=== PATIENT | female | born 1980 | race Caucasian/White ===

== ENCOUNTER 2022-01-08 13:36 | Emergency (ER) | payer MEDICAID, SELFPAY ==
[2022-01-08 13:45] VITALS: BP 95/82; PULSE 112; RESP 18; TEMP 36.2; O2SAT 99; BMI 22.4
--- NOTE | 2022-01-08 13:56 | ED_ITS ---
HPI - General Adult General Time Seen by Provider: 13:56 Date Seen: 01/08/22 Chief complaint: Headache/Migraine Stated complaint: Flu symptoms, headache Time Seen by Provider: 01/08/22 13:56 Source: patient and RN notes reviewed Mode of arrival: ambulatory Limitations: no limitations History of Present Illness HPI narrative: This 41-year-old female is coming to the ER with concern of a sinus infection. She came down with upper respiratory symptoms that she presumed was influenza on Wednesday. She has children that her sick in the house that have reportedly tested positive for influenza. She primarily has had cough with this, some headaches. She had a little diarrhea at the beginning. Her appetite has been diminished. She has been able to drink fluids. She felt a little better and then started developing significant sinus congestion and pressure. She states her upper teeth hurt a lot this morning. She states she is prone to sinus infections. She has been doing Neti pots, cbwu-kog-alcwljk medicines. She has been trying warm compresses, multiple modalities. She has been doing steaming. She does have underlying asthma and is on appropriate medicines for this. Related Data Home Medications Medication Instructions Recorded Confirmed albuterol sulfate 2.5 mg/3 mL mg 01/08/22 (0.083 %) solution for nebulization budesonide-formoterol HFA 160 inhalation 01/08/22 mcg-4.5 mcg/actuation aerosol inhaler (Symbicort) fluticasone propionate 50 intranasal 01/08/22 mcg/actuation nasal spray,suspension ipratropium 0.5 mg-albuterol 3 mg ml inhalation 01/08/22 (2.5 mg base)/3 mL nebulization soln loratadine 10 mg tablet mg 01/08/22 methylphenidate HCl 18 mg mg PO 01/08/22 tablet,extended release 24 hr (Concerta) montelukast 10 mg tablet mg 01/08/22 Allergies Allergy/AdvReac Type Severity Reaction Status Date / Time nalbuphine [From Nubain] Allergy Verified 01/08/22 13:43 Review of Systems Status of ROS: Reports: 6 or more systems reviewed and unremarkable except as noted in History and below PFSH PFSH Social History Smoking Status: Never smoker Do you use any of these nicotine containing products: None Second hand tobacco smoke exposure: No How often do you have a drink containing alcohol: never How often do you have six or more drinks on one occasion: Never AUDIT-C Alcohol total score: 0 Non-prescribed substance use: denies use service: No Exam Const: Vital Signs, click to edit/add: Vital Signs - 24 hr 01/08/22 13:45 Temperature 97.2 F L Pulse Rate [Right Pulse Oximeter] 112 H Respiratory Rate 18 Blood Pressure [Ri ght Upper Arm] 95/82 Pulse Oximetry 99 Oxygen Delivery Me thod Room Air Documenting provider has reviewed patient's vital signs: yes Common normals: no apparent distress, average body habitus, oriented x3, no limitations and alert General appearance: cooperative, comfortable, well developed and ill appearing Other: Does have some dry coughing during the interaction, audible nasal congestion. Able to speak in complete sentences without any difficulty. HENMT: Common normals: normocephalic, head/scalp atraumatic, hearing grossly normal bilaterally, external ears normal, TM's normal bilaterally (Does appear to be some prominence of clear fluid inferiorly bilaterally), external nose normal, nasal mucous membranes and turbinates normal, moist oral mucous membranes, oropharynx normal, dentition normal and gingiva normal Head and scalp: normocephalic and atraumatic Face and sinus: sinuses nontender and face symmetric Nose: external nose normal and nasal mucous membranes and turbinates normal External ear: external ears normal Tympanic membrane: TM's normal bilaterally (Does appear to be some prominence of clear fluid inferiorly bilaterally) Eye: Common normals: PERRL, EOMs intact bilaterally, conjunctivae normal and no scleral icterus Conjunctiva: conjunctiva(e) normal Pupil: PERRL Neck & C-Spine: Common normals: full ROM (No cervical adenopathy no thyromegaly masses or nodules), no lymphadenopathy, supple, no meningeal signs, no JVD and thyroid normal Thyroid: thyroid normal Chest: Common normals: inspection of chest normal Resp: Common normals: normal respiratory effort, no retractions, no use of accessory muscles and clear to auscultation bilaterally Auscultation: clear to auscultation bilaterally Cardio: Common normals: no JVD, regular rate, regular rhythm, S1 normal heart sound, S2 normal heart sound, no gallops, no clicks and no murmurs Rate: re gular rate Rhythm: regular rhythm Heart sounds: S1 normal and S2 normal Neuro: Common normals: oriented x3 Sensorium/orientation: alert Meningeal signs: no meningeal signs Course Course Hospital Course: Reviewed with patient that it is likely not bacterial sinusitis or early into this illness. She in my opinion did not seem very happy with my suggestion. Nursing staff had appropriately done a triple swab on arrival. She and I discussed other testing that might help us. I will proceed with sinus imaging with just plain x-rays. I do not think we need to expose her to the radiation of a sinus CT. Will also use a CBC to help us in differentiating possible disease process here. Reevaluation(s) Reevaluation #1: Reviewed with patient her findings on her sinus x-rays. I did review with her that the turbinates did look swollen to me but that is not a sinusitis. May be giving her symptoms of the congestion now. Her white count is normal. She is testing positive for influenza a which is not surprising given the ill contacts in the house. She did request a note to be off work tomorrow which I will provide. We discussed using a nasal steroid spray. She does have Flonase at home but thinks it is old. No pharmacies are open today but I can send her a prescription in to try and start tomorrow. Patient is most definitely out of the treatment window for Tamiflu. Time: 15:01 Vital Signs Vital signs: Initial Vital Signs Temperature 97.2 F L 01/08/22 13:45 Temperature Source Temporal Artery Scan 01/08/22 13:45 Pulse Rate 112 H 01/08/22 13:45 Respiratory Rate 18 01/08/22 13:45 Blood Pressure 95/82 01/08/22 13:45 Blood Pressure Mean 86 01/08/22 13:45 Blood Pressure Position Sitting 01/08/22 13:45 Pulse Oximetry 99 01/08/22 13:45 Oxygen Delivery Method 01/08/22 13:45 Vital Signs Temperature 97.2 F L 01/08/22 13:45 Pulse Rate 112 H 01/08/22 13:45 Respiratory Rate 18 01/08/22 13:45 Blood Pressure 95/82 01/08/22 13:45 Pulse Oximetry 99 01/08/22 13:45 Oxygen Delivery Method 01/08/22 13:45 Temperature 97.2 F L 01/08/22 13:45 Pulse Rate 112 H 01/08/22 13:45 Respiratory Rate 18 01/08/22 13:45 Blood Pressure 95/82 01/08/22 13:45 Pulse Oximetry 99 01/08/22 13:45 Oxygen Delivery Method 01/08/22 13:45 Medical Decision Making Lab Data Lab results reviewed: Yes I reviewed the patient's lab results Labs: Lab Results 01/08/22 01/08/22 Range/Units 13:48 14:09 WBC 6.05 (4.50-11.00) K/uL RBC 4.36 (4.00-5.20) m/uL Hgb 13.9 (12.0-16.0) gm/dL Hct 41.3 (33.0-51.0) % MCV 95 (80-100) fL MCH 32 (26-34) pg MCHC 34 (32-36) gm/dL RDW Coeff of Anil 12.4 (11.5-15.5) % Plt Count 216 (140-440) K/uL Neut % (Auto) 66.0 (42.0-72.0) % Lymph % (Auto) 21.7 (20-44) % Gove % (Auto) 10.4 (0.0-11.0) % Eos % (Auto) 1.5 (0.0-7.0) % Baso % (Auto) 0.2 (0.0-3.0) % Neut # (Auto) 4.00 (1.7-7.0) K/uL Lymph # (Auto) 1.31 (0.90-2.90) K/uL Gove # (Auto) 0.60 (0.00-0.90) K/UL Eos # (Auto) 0.09 (0.00-0.50) K/uL Baso # (Auto) 0.01 (0.00-0.30) K/uL Abs Immat Gran (auto) 0.01 (0.00-0.30) K/uL Imm/Tot Granulo (auto) 0.2 % SARS-CoV-2 (PCR) Negative SARS-CoV-2 (Negative) Influenza Type A (PCR) POSITIVE PCR FLU A A (Negative) Influenza Type B (PCR) Negative PCR FLU B (Negative) RSV (PCR) Negative PCR RSV (Negative) Imaging Data X-ray sinus films: Attestation: I have reviewed the pertinent imaging results. My impression: Her turbinates, right greater than left looks somewhat swollen on the x-ray images but do not see any evidence of acute sinusitis on my preliminary read. Radiologist's impression: Patient: TRUDY DE LEON Facility:?[facility] Patient ID:?[id number] Site Patient ID:?[id number]. Site :?[id number] Study:?XRay Sinus -01/08/2022 2:29:23 PM Ordering Physician:?Bi Whitt Final Report: INDICATION: Sinus effect. FINDINGS: Three views of the sinuses obtained. The sinuses are all well pneumatized and clear. IMPRESSION: No plain film evidence of a sinusitis. Dictated by Pop Donaldson MD @ 01/08/2022 2:43:15 PM (Electronic Signature) Critical Care Time Critical Care Time Critical Care Time: No Discharge Plan Discharge Clinical Impression: Influenza A Patient Disposition: Home, Self-Care Condition: Stable Instructions: Influenza (ED) Additional Instructions: Can try Flonase per prescription to help decrease nasal passage swelling. Can continue with almo-ubw-iqomzfi medicines as you have been for symptom control. Note provided for you to be off work tomorrow. If you are not improving over the next week, have increasing respiratory difficulties or have increasing sinus symptoms instead of improvement over the next week, do need to seek re- evaluation. Prescriptions: No Action ipratropium-albuterol 0.5 mg-3 mg(2.5 mg base)/3 mL solution for nebulization INHALATION Label Comments: INHALE 3 ML VIA A NEBULIZER 4 TIMES DAILY FOR 3 DOSES. albuterol sulfate 2.5 mg /3 mL (0.083 %) solution for nebulization Label Comments: USE 1 VIAL VIA NEBULIZER EVERY 4 HOURS WHILE AWAKE montelukast 10 mg tablet Label Comments: TAKE 1 TABLET BY MOUTH AT BEDTIME methylphenidate HCl [Concerta] 18 mg tablet extended release 24hr PO Label Comments: TAKE 1 TABLET BY MOUTH DAILY fluticasone propionate 50 mcg/actuation spray,suspension INTRANASAL loratadine 10 mg tablet budesonide-formoterol [Symbicort] 160-4.5 mcg/actuation HFA aerosol inhaler INHALATION Label Comments: INHALE 2 PUFFS BY MOUTH TWICE DAILY Stand Alone Forms: [employer] Info Instructions
--- NOTE | 2022-01-08 14:01 | CRLHL7_ITS ---
For Patients: As a result of the Cures Act, medical imaging exams and procedure reports are released immediately into your electronic medical record. You may view this report before your referring provider. If you have questions, please contact your health care provider. INDICATION: Sinus effect. FINDINGS: Three views of the sinuses obtained. The sinuses are all well pneumatized and clear. IMPRESSION: No plain film evidence of a sinusitis. Dictated by Pop Donaldson MD @ 01/08/2022 2:43:15 PM (Electronically Signed)
[2022-01-08 14:16] LABS: Basophils Absolute Auto 0.01 K/uL (0.00-0.30); Basophils Percent Auto 0.2 % (0.0-3.0); Eosinophils Absolute Auto 0.09 K/uL (0.00-0.50); Eosinophils Percent Auto 1.5 % (0.0-7.0); Hematocrit 41.3 % (33.0-51.0); Hemoglobin* 13.9 gm/dL (12.0-16.0); Immature Granulocytes Abs Auto 0.01 K/uL (0.00-0.30); Immature Granulocytes Pct Auto 0.2 %; Lymphocytes Absolute Auto 1.31 K/uL (0.90-2.90); Lymphocytes Percent Auto 21.7 % (20-44); Mean Corpuscular HGB Conc 34 gm/dL (32-36); Mean Corpuscular Hemoglobin 32 pg (26-34); Mean Corpuscular Volume 95 fL (80-100); Monocytes Percent Auto 10.4 % (0.0-11.0); Platelet Count* 216 K/uL (140-440); RDW Coefficient of Variation % 12.4 % (11.5-15.5); Red Blood Count 4.36 m/uL (4.00-5.20); White Blood Count* 6.05 K/uL (4.50-11.00)
[2022-01-08 14:19] LABS: Slide Review Reflex No
[2022-01-08 14:35] LABS: PCR FLU A POSITIVE PCR FLU A (Negative); PCR FLU B Negative PCR FLU B (Negative); PCR RSV Negative PCR RSV (Negative)
[2022-01-08 14:40] LABS: SARS PCR* Negative SARS-CoV-2 (Negative)
--- OUTSIDE RECORDS SUMMARY | 2022-01-08 14:40 | XMS_ITS | Clinical Summary ---
:1980 Author Organization [facility] [place] [address] Care Team Providers Name Role Phone Yelitza Martino DO Primary Care Provider Allergies Active Allergy Reactions Severity Noted Date Comments Animal Dander Dyspnea High 09/27/2016 Environmental - danders, pollens , dust Nalbuphine Itching, Other - 05/01/2015 Describe In Comment Field Unlisted Allergen Shortness Of Breath 09/27/2016 Env ironmental - danders, (Include Detail In pollens , dust Comments) Shrimp Other - Describe In 12/02/2015 Sharp c hest pains, Comment Field short of breat h Sharp chest pa ins, short of breath Medications Medication Sig Dispensed Refills Start Date End Date Status levonorgestrel Inject 1 Device 1 Device 0 02/13/2016 Active intrauterine device intrauterine one (MIRENA) 20 mcg/24 hr time for 1 dose. (5 years) IUD albuterol (PROVENTIL) Inhale 3 mL via a 2 box 2 01/24/2020 Active 0.083 % neb nebulizer every 4 solutionIndications: hours if needed. Moderate persistent asthma without complication hydrOXYzine HCL Take 0.5-1 tablets 25 tablet 0 01/24/2020 Active (ATARAX) 25 mg by mouth every 6 tabletIndications: hours if needed Anxiety for Anxiety or Itching. cyclobenzaprine Take 1 Tablet (5 15 Tablet 3 08/22/2020 Active (FLEXERIL) 5 mg mg) by mouth 3 tabletIndications: times daily if Acute bilateral low needed for Muscle back pain with Spasm. bilateral sciatica meclizine (ANTIVERT) Take 1 Tablet 30 Tablet 5 10/23/2020 Active 12.5 mg (12.5 mg) by mouth tabletIndications: 3 times daily if Vertigo needed. ipratropium-albuteroL Inhale 1 Puff by 1 Each 0 11/25/2020 Active (COMBIVENT RESPIMAT) mouth 4 times (20-100 mcg each daily. actuation) mist inhalerIndications: Exacerbation of asthma, unspecified asthma severity, unspecified whether persistent albuterol-ipratropium Inhale 3 mL via a 1080 mL 3 11/25/2020 Active (DUONEB) (2.5-0.5 mg) nebulizer 4 times in 3 mL NEBULIZATION daily. solutionIndications: Exacerbation of asthma, unspecified asthma severity, unspecified whether persistent methylphenidate HCl Take 1 Capsule (10 30 Capsule 0 03/14/2021 Active (RITALIN LA) 10 mg SR mg) by mouth once capsuleIndications: daily. Attention deficit hyperactivity disorder (ADHD), predominantly inattentive type albuterol (PROVENTIL) Inhale 3 mL (2.5 180 mL 11 01/17/2021 Active 0.083 % neb mg) via a solutionIndications: nebulizer every 4 Moderate persistent hours while awake. asthma without complication montelukast Take 1 Tablet (10 30 Tablet 11 05/13/2021 Active (Singulair) 10 mg mg) by mouth once tabletIndications: daily. Moderate persistent asthma without complication fluticasone (50 mcg Inhale 2 Sprays to 16 g 11 07/21/2021 Active per actuation) nasal both nostrils 2 solution times daily. (FLONASE)Indications: Chronic rhinitis acyclovir (ZOVIRAX) TAKE 2 30 Capsule 3 08/01/2021 Active 200 mg CAPSULES(400 MG) capsuleIndications: BY MOUTH THREE Genital herpes TIMES DAILY FOR 5 simplex, unspecified DAYS site Symbicort 160-4.5 Inhale 2 Puffs by 30.6 g 0 08/01/2021 Active mcg/actuation mouth 2 times (160-4.5 mcg each daily. actuation) inhalerIndications: Severe asthma without complication, unspecified whether persistent budesonide-formoteroL Inhale 2 Puffs by 30.6 g 0 10/24/2021 Active (SYMBICORT) 160-4.5 mouth two times mcg/actuation daily. (160-4.5 mcg each actuation) inhalerIndications: Severe asthma without complication, unspecified whether persistent albuterol HFA Inhale 1-2 Puffs 1 Each 0 11/02/2021 Active (PRO-AIR; VENTOLIN; by mouth every 4 PROVENTIL) 90 hours if needed mcg/actuation for Shortness Of inhalerIndications: Breath. Exacerbation of asthma, unspecified asthma severity, unspecified whether persistent albuterol HFA Inhale 2 Puffs by 18 g 1 11/06/2021 Active (PRO-AIR; VENTOLIN; mouth every 4 PROVENTIL) 90 hours if needed mcg/actuation for Shortness Of inhalerIndications: Breath or Exacerbation of Wheezing. asthma, unspecified asthma severity, unspecified whether persistent triamcinolone Apply topically to 80 g 1 11/06/2021 Active (ARISTOCORT) 0.1 % affected area(s) ointmentIndications: two times daily. Keratosis pilaris loratadine (CLARITIN) TAKE 1 TABLET(10 90 Tablet 2 11/30/2021 Active 10 mg MG) BY MOUTH EVERY tabletIndications: DAY Seasonal allergies azelastine 137 Inhale 1 [place] 30 mL 5 12/08/2021 Active mcg/actuation into affected (ASTELIN) nasal nostril(s) two sprayIndications: times daily. 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 Overview: Overview: Depression Anxiety Overview: Overview: Depression Anxiety Placenta previa in third trimester 05/29/2015 Herpes simplex type 2 infection 03/16/2013 Environmental allergies 03/16/2013 GERD (gastroesophageal reflux disease) 12/24/2011 Unspecified personality disorder 11/19/2011 Polysubstance dependence, non-opioid, in remission 05/2011 Health Maintenance 08/25/2010 Overview: n/a IUD (intrauterine device) in place 09/16/2007 Overview: lissa Castillo in Sep, 2012 Moderate persistent asthma without complication Resolved Problems Problem Noted Date Resolved Date Supervision of other normal 06/16/2007 Herpes 07/04/2020 Encounters Date Type Specialty Care Team Description 01/07/2022 Telephone Yelitza Martino DO Referr al (Psychiatry) 01/06/2022 Emergency Mingo Payne Infl uenza-like illness MD Celina (Primary Dx) 01/06/2022 Travel 12/08/2021 Office Visit Bernardino Crockett, Follow Up (asthma ) 12/08/2021 Travel 11/29/2021 Refill Yelitza Martino DO Refill Request (Loratadine) 11/13/2021 Office Visit Mahnaz Garg Consu lt (Breathing PA difficulties) 11/13/2021 Travel 11/06/2021 Office Visit Yelitza Martino DO Derm P roblem (feels like ingrown hairs - since childhood ) 11/06/2021 Travel 11/02/2021 Office Visit Darlene Mckenzie, HERIBERTO Throat P roblem 11/02/2021 Travel 11/01/2021 Refill Yelitza Martino DO Refill Request (Albuterol Hfa) 10/30/2021 Refill Yelitza Martino DO Refill Request (Loratadine) from Last 3 Months Immunizations Name Administration Dates Next Due DTaP 12/06/1986, 06/14/1986, 1982, 03/0 10/1982 Hepatitis B (Peds) 01/17/1998 Hepatitis B, Unspecified 09/28/2007, 10/03/2003, 09/28/2002 Inactivated Polio Vaccine 06/14/1986, 1982, 1980 Influenza, IIV4 01/24/2020, 12/08/2018, 11/30/2017, 11/16, 12/18/2014 MMR 09/17/1983 Polio Virus, Unspecified 06/14/1986, 1982, 1982 Tdap 04/11/2015, 08/25/2010 Family History Medical History Relation Name Comments Heart attack Father early 40s, early 50s. Hemochromatosis Father Diabetes Maternal Grandmother Heart Disease Maternal Uncle Other Mother Hemachromatosis Thyroid Disease Mother hypothyroidism Hemochromatosis Paternal Aunt Hemochromatosis Paternal Grandfather Hemochromatosis Paternal Uncle Relation Name Status Comments Brother 1 Alive Brother 2 Alive Brother 3 Alive Brother 4 Alive Father Maternal Grandmother Maternal Uncle Mother Alive Paternal Aunt Paternal Grandfather Paternal Uncle Social History Tobacco Use Types Packs/Day Years Used Date Former Smoker 1 Smokeless Tobacco: Never Used Tobacco Cessation: Counseling Given: Yes Alcohol Use Standard Drinks/Week Comments No 0 (1 standard drink = 0.6 oz pure alcoho l) Sex Assigned at Date Recorded Not on file COVID-19 Exposure Response Date Recorded In the last 10 days, have you been in contact No / Unsure 01/06/2022 10:42 AM TOP EDGE BEVELER with someone who was confirmed or suspected to have Coronavirus/COVID-19? Obstetrics History Para Term AB IAB SAB Ectopic Multiple Living Live Births 4 3 3 0 0 0 0 0 0 3 3 Date Outcome GA Total Labor/2nd/3rd Weight Sex Delivery Anes PTL Mallory A 1 A5 Name Clin Labor 06/22 Term F Samantha /2002 ng 02/20 Term F Samantha /2005 ng 06/16 Term F Samantha /2007 ng Last Filed Vital Signs Vital Sign Reading Time Taken Comments Blood Pressure 90/69 01/06/2022 10:58 AM TOP EDGE BEVELER Pulse 105 01/06/2022 10:58 AM TOP EDGE BEVELER Temperature 37.1 ??C (98.7 ??F) 01/06/2022 10:58 AM TOP EDGE BEVELER Respiratory Rate 22 01/06/2022 10:58 AM TOP EDGE BEVELER Oxygen Saturation 98% 01/06/2022 10:58 AM TOP EDGE BEVELER Inhaled Oxygen Concentration - - Weight 70.8 kg (156 lb) 01/06/2022 1:26 PM TOP EDGE BEVELER Height 175.3 cm (5' 9) 01/06/2022 1:23 PM TOP EDGE BEVELER Body Mass Index 23.04 01/06/2022 1:23 PM TOP EDGE BEVELER Plan of Treatment Upcoming Encounters Date Type Specialty Care Team Description 03/04/2022 Office Visit Bernardino Crockett Tamika jackson, DO [address] [place], [place] [address] (Wo rk) Health Maintenance Due Date Last Done Comments COVID-19 vaccine series (#1) 1980 Pneumococcal series for age 19-64 02/28/1988 (1 - PCV) Influenza for age 9-49 10/16/2021 01/24/2020, 12/08/2018, 11/30/2017, Additional history exists Depression screening for age 12+ 09/18/2022 09/18/2021, , 07/16/2020, Additional history exists BMI (ht and wt on same day) for 12/08/2022 12/08/2021, 03/2 10/2021, age 18+ 02/14/2021, Additional history exists Tetanus booster 04/11/2025 04/11/2015, 08/25/2010 Pap test for age 21-65 09/18/2026 09/18/2021, 09/18/2021, 11/30/2017 (Completed outside of [facility]) Tdap Completed 04/11/2015, 08/25/2010 HIV for age 15-65 Completed 09/18/2021, 01/12/2020, 02/11/2017 Hepatitis C screening for age Completed 09/18/2021 18-79 Procedures Procedure Name Priority Date/Time Associated Comments Diagnosis COVID 19 STAT 01/06/2022 1:27 PM Results f or this TOP EDGE BEVELER procedure are i n the results section. COVID 19 COLLECTION STAT 01/06/2022 1:27 PM Re sults for this TOP EDGE BEVELER procedure are i n the results section. THROAT RAPID STREP STAT 11/02/2021 3:35 PM Sore throat Res ults for this ONLY CLINIC CDT procedure are i n the results section. from Last 3 Months Results COVID 19 (01/06/2022 1:27 PM TOP EDGE BEVELER) Analysis Performed At Patho logist Time Signature COVID 19 Negative Negative 01/06/2022 [facility] 3:43 PM [facility] Comment: All PCR tests are subject to fa lse negative result due to variability in viral load and collection technique. A n egative result does not rule out a SARS-CoV-2 infection. Clinical correlation required . Specimen Anatomical Location / Collection Method Collection Sanjay e Received Time (Source) Laterality / Volume Other SPECIMEN FROM Non-Blood / 01/06/2022 1:27 01/06/2022 1:33 NASOPHARYNGEAL Unknown PM TOP EDGE BEVELER PM TOP EDGE BEVELER STRUCTURE / Unknown Narrative [facility] - 3:43 PM TOP EDGE BEVELER This test has been authorized by FDA und er an Emergency Use Authorization (EUA). This test is only authorized for the duration of time the declaration that circumstances exist justifying the authorization of th e emergency use of in vitro diagnostic tests for detection of SARS-CoV-2 virus and/or diagnosis of COVID-19 infection under section 564(b)(1) of the Act, 21 U.S.C. 360bbb-3(b) (1), unless the authorization is terminated or revoked sooner. Mingo Payne MD MICROBIOLOGY Performing Organization Address City/[facility] e [facility] [address] [place] [address] COVID 19 COLLECTION (01/06/2022 1:27 PM TOP EDGE BEVELER) [facility] gist Method Time Signature TESTING [facility] 01/06/2022 [facility] 1:33 PM [facility] Comment: Specimen submitted to [facility] for testing. Specimen Anatomical Location / Collection Method Collection Sanjay e Received Time (Source) Laterality / Volume Other SPECIMEN FROM Non-Blood / 01/06/2022 1:27 01/06/2022 1:31 NASOPHARYNGEAL Unknown PM TOP EDGE BEVELER PM TOP EDGE BEVELER STRUCTURE / Unknown Mingo Payne MD SEND OUTS Performing Organization Address [facility] Phon e Number [facility] [address] [place] [address] THROAT RAPID STREP ONLY CLINIC (11/02/2021 3:35 PM CDT) Analysis Performed At Patho logist Time Signature THROAT RAPID Negative 11/02/2021 [facility] 3:49 PM [facility] Specimen Anatomical Collection Method Collection Time Receive d Time (Source) Location / / Volume Laterality Throat SPECIMEN FROM Non-Blood / 11/02/2021 3:35 PM 11/03/19 22 3:45 THROAT / Unknown Unknown CDT PM CDT Darlene Mckenzie NP MICROBIOLOGY Performing Organization Address City/State/ZIP Code Phon e Number [facility] [address] [place] [address] from Last 3 Months Insurance Payer Benefit Plan / Subscriber ID Effective Dates Phone Addre ss Type Group [employer] [id number] 2017-Presen [address] [address] [employer] [place] [id number] [facility] [id number] 2021-Present [address] [place] [address] [employer] Vega Motor Vehicle Self 1980 [id number] (Home) [place] [address] Advance Directives Latest Code Status on File Code Status Date Activated Date Inactivated Comments Full Code 05/01/2015 3:27 PM 05/01/2015 10:16 PM Full Code 06/17/2007 7:53 AM 06/18/2007 7:34 AM Full Code 06/16/2007 7:25 PM 06/17/2007 7:53 AM Care Teams Head Waitress Relationship Specialty Start Date End Date Yelitza Martino, PCP - General Internal Medicine 02/24/16 [address] [facility] [place] [address]
[2022-01-08 14:59] VITALS: BP 90/72; PULSE 87; RESP 20; TEMP 36.6; O2SAT 97
== END 2022-01-08 15:12 | disposition home or self-care (01) ==
PROVIDERS: Emergency Provider Family Medicine
DX: J09.X2 Influenza due to identified novel influenza A virus with other respiratory manifestations (principal)
CPT/HCPCS: 36415; 70220; 85025; 87502; 87634; 87635; 99284

== ENCOUNTER 2022-02-04 16:20 | Emergency (ER) | payer MEDICAID, SELFPAY ==
[2022-02-04 16:44] VITALS: BP 103/67; PULSE 87; RESP 18; TEMP 36.8; O2SAT 98; BMI 23.0
--- NOTE | 2022-02-04 17:58 | CRLHL7_ITS ---
For Patients: As a result of the Century Cures Act, medical imaging exams and procedure reports are released immediately into your electronic medical record. You may view this report before your referring provider. If you have questions, please contact your health care provider. INDICATION: Cough. Shortness of breath. TECHNIQUE: PA and lateral views of the chest. COMPARISON: 03/03/2021. FINDINGS: Heart size is normal. Pulmonary vasculature is unremarkable. No airspace opacities to suggest pneumonia. No pleural fluid or pneumothorax. IMPRESSION: No radiographic evidence of pneumonia. Dictated by Andres Quiroz MD @ 02/04/2022 6:34:49 PM (Electronically Signed)
--- NOTE | 2022-02-04 17:59 | ED.GENADULT ---
HPI - General Adult General Chief complaint: Cough Stated complaint: Short of Breath Time Seen by Provider: 02/04/22 16:37 History of Present Illness HPI narrative: This 41-year-old female comes in reporting 1 week of upper respiratory symptoms including cough and some feeling of shortness of breath. She has some nasal congestion and a hoarse voice. She does not report any fevers. She states that she does use an inhaler and a preventative medicine as needed. She has been using these over the past week without much improvement. Related Data Home Medications Medication Instructions Recorded Confirmed albuterol sulfate 2.5 mg/3 mL mg 01/08/22 (0.083 %) solution for nebulization budesonide-formoterol HFA 160 inhalation 01/08/22 mcg-4.5 mcg/actuation aerosol inhaler (Symbicort) fluticasone propionate 50 intranasal 01/08/22 mcg/actuation nasal spray,suspension ipratropium 0.5 mg-albuterol 3 mg ml inhalation 01/08/22 (2.5 mg base)/3 mL nebulization soln loratadine 10 mg tablet mg 01/08/22 methylphenidate HCl 18 mg mg PO 01/08/22 tablet,extended release 24 hr (Concerta) montelukast 10 mg tablet mg 01/08/22 Previous Rx's Medication Instructions Recorded fluticasone furoate 27.5 2 spray intranasal DAILY #9.1 mL 01/08/22 mcg/actuation nasal spray,suspension methylprednisolone 4 mg tablets in See Rx Instructions PO .COMPLEX 02/04/22 a dose pack (Medrol (Norm)) #21 ea Allergies Allergy/AdvReac Type Severity Reaction Status Date / Time nalbuphine [From Nubain] Allergy Verified 01/08/22 13:43 Review of Systems Status of ROS: Reports: 10 or more systems reviewed and unremarkable except as noted in History and below Narrative: Constitutional: No fevers, no weight gain or loss. Eyes: No discharge. No vision changes. HENT: Nasal congestion, no sore throat, no ear pain. Cardiovascular: No chest pain, no palpitations. Respiratory: Cough. Shortness of breath. Gastrointestinal: No abdominal pain, no vomiting, no diarrhea. Genitourinary: No dysuria, no hematuria. Musculoskeletal: Normal range of motion. Skin: No rashes, no pruritis. Neurological: No dizziness, weakness, sensory change, speech change. Endo/Heme/Allergies: No bruising or bleeding. No polydipsia. Pysch: no suicidality, no anxiety, no insomnia. All other systems reviewed and are negative. [facility] Social History Smoking Status: Never smoker Do you use any of these nicotine containing products: None Second hand tobacco smoke exposure: No How often do you have a drink containing alcohol: never How often do you have six or more drinks on one occasion: Never AUDIT-C Alcohol total score: 0 Non-prescribed substance use: denies use service: No Exam Narrative: Exam Narrative: Constitutional: Well-developed, well-nourished, no acute distress. HEENT: Normocephalic, atraumatic. Neck: Normal range of motion. Nontender. Supple. Heart: Regular. No murmurs. Normal rate. Intact distal pulses. Lungs: Clear to auscultation. No chest discomfort. No wheezes, rhonchi, or rales. Abdomen: Normal bowel sounds. Nontender. No rebound tenderness. Genitalia: Deferred. Back: No midline tenderness. Normal range of motion. Extremities: Normal range of motion. No injury. Skin: Intact. No rash. Warm. No erythema or pallor. Neurologic: No altered sensation. No weakness. Alert and oriented. Psychiatric: No suicidality. No anxiety or depression. No insomnia. Nursing notes and vitals signs are reviewed. Const: Vital Signs, click to edit/add: Vital Signs - 24 hr 02/04/22 16:44 02/04/22 18:38 02/04/22 19:32 Temperature 98.2 F Pulse Rate [Right Pulse Oximeter] 87 69 Respiratory Rate 18 Blood Pressure [Ri ght Upper Arm] 103/67 99/69 100/66 Pulse Oximetry 98 100 Oxygen Delivery Me thod Room Air Room Air Course Vital Signs Vital signs: Initial Vital Signs Temperature 98.2 F 02/04/22 16:44 Temperature Source Temporal Artery Scan 02/04/22 16:44 Pulse Rate 87 02/04/22 16:44 Pulse Rhythm 02/04/22 16:44 Respiratory Rate 18 02/04/22 16:44 Blood Pressure 103/67 02/04/22 16:44 Blood Pressure Mean 79 02/04/22 16:44 Blood Pressure Position Sitting 02/04/22 16:44 Pulse Oximetry 98 02/04/22 16:44 Oxygen Delivery Method 02/04/22 16:44 Vital Signs Temperature 98.2 F 02/04/22 16:44 Pulse Rate 87 02/04/22 16:44 Respiratory Rate 18 02/04/22 16:44 Blood Pressure 103/67 02/04/22 16:44 Pulse Oximetry 98 02/04/22 16:44 Oxygen Delivery Method 02/04/22 16:44 Temperature 98.2 F 02/04/22 16:44 Pulse Rate 69 02/04/22 19:32 Respiratory Rate 18 02/04/22 16:44 Blood Pressure 100/66 02/04/22 19:32 Pulse Oximetry 100 02/04/22 19:32 Oxygen Delivery Method 02/04/22 19:32 Medical Decision Making MDM Narrative Medical decision making narrative: This patient comes in reporting upper respiratory symptoms as described above. A chest x-ray is ordered and returns with no evidence of acute pulmonary disease. Additionally her nasal pharyngeal swab returns negative for COVID, influenza, and RSV. The patient does have normal vital signs. She is using inhalers at home. I did give her an oral dose of dexamethasone 10 mg. Her symptoms are likely due to a virus. She did receive a Medrol Dosepak and prescription for some tablets of Tylenol 3. Lab Data Labs: Lab Results 02/04/22 Range/Units 18:20 SARS-CoV-2 (PCR) Negative SARS-CoV-2 (Negative) Influenza Type A (PCR) Negative PCR FLU A (Negative) Influenza Type B (PCR) Negative PCR FLU B (Negative) RSV (PCR) Negative PCR RSV (Negative) Imaging Data Chest x-ray: Radiologist's impression: No radiographic evidence of pneumonia. Discharge Plan Discharge Clinical Impression: Acute upper respiratory infection Patient Disposition: Home, Self-Care Condition: Stable Additional Instructions: Take medication as needed and indicated. Follow up with MD or return if worsening. Prescriptions: New methylprednisolone [Medrol (Norm)] 4 mg tablets,dose pack See Rx Instructions .ROUTE .COMPLEX Qty: 21 0RF Rx Instructions: orally per package directions No Action ipratropium-albuterol 0.5 mg-3 mg(2.5 mg base)/3 mL solution for nebulization INHALATION Label Comments: INHALE 3 ML VIA A NEBULIZER 4 TIMES DAILY FOR 3 DOSES. albuterol sulfate 2.5 mg /3 mL (0.083 %) solution for nebulization Label Comments: USE 1 VIAL VIA NEBULIZER EVERY 4 HOURS WHILE AWAKE montelukast 10 mg tablet Label Comments: TAKE 1 TABLET BY MOUTH AT BEDTIME methylphenidate HCl [Concerta] 18 mg tablet extended release 24hr PO Label Comments: TAKE 1 TABLET BY MOUTH DAILY fluticasone propionate 50 mcg/actuation spray,suspension INTRANASAL loratadine 10 mg tablet budesonide-formoterol [Symbicort] 160-4.5 mcg/actuation HFA aerosol inhaler INHALATION Label Comments: INHALE 2 PUFFS BY MOUTH TWICE DAILY fluticasone furoate 27.5 mcg/actuation spray,suspension 2 spray intranasal DAILY Qty: 9.1 0RF Rx Instructions: into each nostril Follow Up/Referrals: Provider,Not a Local [Primary Care Provider] - Stand Alone Forms: [employer] Info Instructions
[2022-02-04] MEDS: dexAMETHasone 10 MG/ML inj PO (18:24)
[2022-02-04 18:38] VITALS: BP 99/69
[2022-02-04 19:15] LABS: PCR FLU A Negative PCR FLU A (Negative); PCR FLU B Negative PCR FLU B (Negative); PCR RSV Negative PCR RSV (Negative)
[2022-02-04 19:32] VITALS: BP 100/66; PULSE 69; O2SAT 100
[2022-02-04 19:57] LABS: SARS PCR* Negative SARS-CoV-2 (Negative)
== END 2022-02-04 20:15 | disposition home or self-care (01) ==
PROVIDERS: Emergency Provider Emergency Medicine Emergency Medical Services
DX: J06.9 Acute upper respiratory infection, unspecified (principal)
CPT/HCPCS: 71046; 87502; 87634; 87635; 99284; J1100

== ENCOUNTER 2022-11-25 09:15 | Outpatient (RCR) | payer MEDICAID, SELFPAY | END 2023-03-25 23:59 | disposition home or self-care (01) | PROVIDERS: Visit Provider Family Medicine | DX: N81.89 Other female genital prolapse (principal); R32 Unspecified urinary incontinence; R29.898 Other symptoms and signs involving the musculoskeletal system; Z51.89 Encounter for other specified aftercare | CPT/HCPCS: 97110; 97140; 97162 ==

== ENCOUNTER 2023-04-06 17:12 | Outpatient (CLI) | payer MEDICAID, SELFPAY ==
--- OUTSIDE RECORDS SUMMARY | 2023-04-06 17:15 | XMS_ITS | Clinical Summary ---
Author Name Unknown Organization [email or web address] [facility] [employer] Address [place], [place] [address] Care Team Providers Care Character Artist Name Role Phone Yelitza Martino Primary Care Provider Allergies Active Allergy Reactions Criticality Noted Date Comments Animal Dander Dyspnea High 09/27/2016 Environmental - danders, pollens , dust Nalbuphine Itching,Other - Describe In Comment Field 05/01/2015 Unlisted Allergen (Include Detail In Comments) Shortness Of Breath 09/27/2016 Environmental - danders, pollens , dust Shrimp Other - Describe In Comment Field 12/02/2015 Sharp chest pains, short of breath Sharp chest pains, short of breath Medications Medication Sig Dispensed Refills Start Date End Date Status levonorgestrel intrauterine device (MIRENA) 20 mcg/24 hr (5 years) IUD Inject 1 Device intrauterine one time for 1 dose. 1 Device 0 02/13/2016 Active hydrOXYzine HCL (ATARAX) 25 mg tabletIndications: Anxiety Take 0.5-1 tablets by mouth every 6 hours if needed for Anxiety or Itching. 25 tablet 0 01/24/2020 Active cyclobenzaprine (FLEXERIL) 5 mg tabletIndications: Acute bilateral low back pain with bilateral sciatica Take 1 Tablet (5 mg) by mouth 3 times daily if needed for Muscle Spasm. 15 Tablet 3 08/22/2020 Active meclizine (ANTIVERT) 12.5 mg tabletIndications: Vertigo Take 1 Tablet (12.5 mg) by mouth 3 times daily if needed. 30 Tablet 5 10/23/2020 Active albuterol (PROVENTIL) 0.083 % neb solutionIndication s:Moderate persistent asthma without complication Inhale 3 mL (2.5 mg) via a nebulizer every 4 hours while awake. 180 mL 11 01/17/2021 Active fluticasone (50 mcg per actuation) nasal solution (FLONASE)Indicatio ns:Chronic rhinitis Inhale 2 Sprays to both nostrils 2 times daily. 16 g 11 07/21/2021 Active acyclovir (ZOVIRAX) 200 mg capsuleIndications :Genital herpes simplex, unspecified site TAKE 2 CAPSULES(400 MG) BY MOUTH THREE TIMES DAILY FOR 5 DAYS 30 Capsule 3 08/01/2021 Active triamcinolone (ARISTOCORT) 0.1 % ointmentIndication s:Keratosis pilaris Apply topically to affected area(s) two times daily. 80 g 1 11/06/2021 Active loratadine (CLARITIN) 10 mg tabletIndications: Seasonal allergies TAKE 1 TABLET(10 MG) BY MOUTH EVERY DAY 90 Tablet 2 11/30/2021 Active azelastine 137 mcg/actuation (ASTELIN) nasal sprayIndications:C hronic rhinitis Inhale 1 Wise into affected nostril(s) two times daily. 30 mL 5 12/08/2021 Active albuterol-ipratrop ium (DUONEB) (2.5-0.5 mg) in 3 mL NEBULIZATION solutionIndication s:Moderate persistent asthma without complication Inhale 3 mL via a nebulizer 4 times daily. 1080 mL 9 06/18/2022 Active albuterol HFA (PRO-AIR; VENTOLIN; PROVENTIL) 90 mcg/actuation inhalerIndications :Moderate persistent asthma without complication Inhale 2 Puffs by mouth every 4 hours if needed for Shortness Of Breath or Wheezing. 1 Each 06/18/2022 Active budesonide-formote roL (SYMBICORT) 160-4.5 mcg/actuation (160-4.5 mcg each actuation) inhalerIndications :Moderate persistent asthma without complication Inhale 2 Puffs by mouth two times daily. 3 Each 06/18/2022 Active ipratropium-albute roL (COMBIVENT RESPIMAT) (20-100 mcg each actuation) mist inhalerIndications :Moderate persistent asthma without complication Inhale 1 Puff by mouth four times daily. 1 Each 06/18/2022 Active montelukast (Singulair) 10 mg tabletIndications: Moderate persistent asthma without complication Take 1 Tablet (10 mg) by mouth once daily. 90 Tablet 9 06/18/2022 Active fluticasone (50 mcg per actuation) nasal solution (FLONASE)Indicatio ns:Chronic rhinitis Inhale 2 Sprays to both nostrils once daily. 48 g 3 06/18/2022 Active Concerta 18 mg extended-release tabletIndications: Attention deficit hyperactivity disorder (ADHD), predominantly inattentive type Take 1 Tablet (18 mg) by mouth once daily. 30 Tablet 0 03/26/2023 04/25/19 24 Active Concerta 18 mg extended-release tabletIndications: Attention deficit hyperactivity disorder (ADHD), predominantly inattentive type Take 1 Tablet (18 mg) by mouth once daily. 30 Tablet 0 04/25/2023 Active methylphenidate HCl (Ritalin) 5 mg tabletIndications: Attention deficit hyperactivity disorder (ADHD), predominantly inattentive type Take 1 Tablet (5 mg) by mouth once daily in the afternoon. 30 Tablet 0 03/29/2023 04/28/19 24 Active methylphenidate HCl (Ritalin) 5 mg tabletIndications: Attention deficit hyperactivity disorder (ADHD), predominantly inattentive type Take 1 Tablet (5 mg) by mouth once daily in the afternoon. 30 Tablet 0 04/28/2023 Active Symbicort 160-4.5 mcg/actuation (160-4.5 mcg each actuation) inhalerIndications :Severe asthma without complication, unspecified whether persistent Inhale 2 Puffs by mouth two times daily. 30.6 g 0 04/05/2023 Active Symbicort 160-4.5 mcg/actuation (160-4.5 mcg each actuation) inhalerIndications :Severe asthma without complication, unspecified whether persistent INHALE 2 PUFFS BY MOUTH TWICE DAILY 30.6 g 0 01/28/2022 04/01/19 24 Discontinue d(Reorder (E-cancel not sent)) Concerta 18 mg extended-release tabletIndications: Attention deficit hyperactivity disorder (ADHD), predominantly inattentive type Take 1 Tablet (18 mg) by mouth once daily. 30 Tablet 0 02/24/2023 03/26/19 24 methylphenidate HCl (Ritalin) 5 mg tabletIndications: Attention deficit hyperactivity disorder (ADHD), predominantly inattentive type Take 1 Tablet (5 mg) by mouth once daily in the afternoon. 30 Tablet 0 2023 03/29/19 24 Active Problems Problem Noted Date Diagnosed Date Methamphetamine use disorder , moderate, in sustained remission 10/21/2022 Controlled substance agreement signed 02/23/2022 Overview: 02/23/22, Ana Rodas NP, [facility] Pap smear for cervical cancer screening 11/20/19 22 Overview: 09/2021 NIL/HPV Negative Plan: Pap and HPV 09/2026 COVID-19 virus infection 03/07/2021 Overview: Feb 2021 Sore throat 02/24/2021 Attention deficit hyperactiv ity disorder (ADHD), predominantly inattentive type 11/14/2020 Plantar fasciitis, bilateral 07/11/2020 COVID-19 vaccination declined 07/11/2020 Attention and concentration deficit 02/01/2018 Borderline personality disorder 01/27/2018 Methamphetamine use disorder , moderate, in early remission, dependence 01/27/2018 Mixed anxiety depressive disorder 11/04/2015 Overview: Overview: Depression Anxiety Overview: Overview: Depression Anxiety Placenta previa in third trimester 05/29/2015 Herpes simplex type 2 infection 03/16/2013 Environmental allergies 03/16/2013 GERD (gastroesophageal reflux disease) 2 Unspecified personality disorder 11/19/2011 Polysubstance dependence, non-opioid, in remissi on 11/19/2011 Health Maintenance 08/25/2010 Overview: n/a IUD (intrauterine device) in place 09/16/2007 Overview: Mirena, due 2023 (8 years) Moderate persistent asthma without complication Resolved Problems Problem Noted Date Diagnosed Date Resolved Date Supervision of other normal 06/16/2007 10/07/2011 Herpes 07/04/2020 Encounters Date Type Department Care Team Description 04/01/2023 Refill [facility] [address] [place] [address] Logan Silva DO Refill Request (Symbicort 160-4.5 mcg/actuation (160-4.5 mcg each actuation) inhaler) 02/24/2023 8:45 AM [employer] Office Visit [facility] [address] [place] [address] Ana Rodas, HERIBERTO Medication Management (Things are okay, but not) 02/24/2023 Travel 01/22/2023 Refill [facility] [address] [place] [address] Ana Rodas NP Refill Request (methylphenidate HCl (Ritalin) 5 mg tablet 30 Tablet) 01/22/2023 Refill [facility] [address] [place] [address] Ana Rodas NP Refill Request (Concerta) 01/20/2023 Refill [facility] [address] [place] [address] Ana Rodas NP Refill Request (Concerta) from Last 3 Months Immunizations Name Administration Dates Next Due DTaP 12/06/1986,06/14/1986,1982 ,1982 Hepatitis A (Adult) 02/18/2022 Hepatitis B (Peds) 01/17/1998 Hepatitis B, Unspecified 09/28/2007,10/03/2003,0 09/28/2002 Inactivated Polio Vaccine 06/14/1986,1982, 1982 Influenza, IIV4 02/18/2022, 0,12/08/2018,11/30/2017,2016,12/18/2014 MMR 09/17/1983 Polio Virus, Unspecified 06/14/1986,1982,0 1982 Tdap 04/11/2015,08/25/2010 Typhoid (injectable) 02/18/2022 Family History Medical History Relation Name Comments Heart attack Father early 40s, early 50s. Hemochromatosis Father Diabetes Maternal Grandmother Heart Disease Maternal Uncle Other Mother Hemachromatosis Thyroid Disease Mother hypothyroidi sm Hemochromatosis Paternal Aunt Hemochromatosis Paternal Grandfather Hemochromatosis Paternal Uncle Relation Name Status Comments Brother 1 Alive Brother 2 Alive Brother 3 Alive Brother 4 Alive Father Maternal Grandmother Maternal Uncle Mother Alive Paternal Aunt Paternal Grandfather Paternal Uncle Social History Tobacco Use Types Packs/Day Years Used Date Smoking Tobacco: Former Cigarettes 1 Passive Smoke Exposure: Never Smokeless Tobacco: Never Tobacco Cessation:Counseling Given: Not Answered Alcohol Use Standard Drinks/Week Comments No 0 (1 standard drink = 0.6 oz pur e alcohol) PHQ-2 Answer Date Recorded PHQ-2 TOTAL SCORE 2 02/24/2023 Social Connections Answer Date Recorded Frequency of Communication with Friends and Fami ly 0 05/28/2022 Financial Resource Strain Answer Date R ecorded Difficulty of Paying Living Expenses 3 05/28/2022 Difficulty of Paying Living Expenses Not on file 05/28/2022 Food Insecurity Answer Date Recorded Worried About Running Out of Food in the Last Ye ar 1 05/28/2022 Transportation Needs Answer Date Record ed Lack of Transportation (Medical) 1 05/28/2022 Housing Stability Answer Date Recorded Unable to Pay for Housing in the Last Year 1 05/28/2022 Sex and Gender Information Value Date Recorded Sex Assigned at Not on file Gender Identity Not on file Sexual Orientation Not on file Obstetrics History Para Term AB IAB SAB Ectopic Multiple Livin g Live Births 4 3 3 0 0 0 0 0 0 3 3 Date Outcome GA Total Labor Labor/2nd/3rd Weight Sex Delivery Anes PTL Mallory A1 A5 Name Cl in 06/22 Term F Samantha ng 02/20 Term F Samantha ng 06/16 Term F Samantha ng Last Filed Vital Signs Vital Sign Reading Time Taken Comments Blood Pressure 110/59 02/24/2023 8:50 AM [employer] Pulse 100 02/24/2023 8:50 AM [employer] Temperature 36.8 ??C (98.2 ??F) 06/18/2022 10:40 AM C DT Respiratory Rate 12 10/06/2022 10:38 AM CDT Oxygen Saturation 98% 09/23/2022 10:36 AM CDT Inhaled Oxygen Concentration - - Weight 81.9 kg (180 lb 9.6 oz) 02/24/2023 8:50 A M [employer] Height 175.3 cm (5' 9) 09/23/2022 10:36 AM CDT Body Mass Index 26.67 09/23/2022 10:36 AM CDT Plan of Treatment Upcoming Encounters Date Type Department Care Team (Late st Contact Info) Description 04/28/2023 11:10 AM CDT Office Visit [facility] [address] [place] [address] Yelitza Martino, DO [address] [place] [address] 05/26/2023 8:15 AM CDT Office Visit [facility] [address] [place] [address] Ana Rodas NP [address] [place] [address] 06/09/2023 1:00 PM CDT Telemedicine [facility] [address] [place] [address] Logan Silva, DO [address] [place] [address] Health Maintenance Due Date Last Done Comments COVID-19 vaccine series (#1) 1982 Pneumococcal series for age 6-64 (1 of 2 - PCV) 02/28/1988 Influenza for age 9-49 10/16/2022 3, 01/24/2020, 12/08/2018, Additional history exists BMI (ht and wt on same day) for age 18+ 09/24/2023 09/23/2022, 06/18/2022, 05/29/2022, Additional history exists Depression screening for age 12+ 02/25/2024 02/24/2023, 10/21/2022, 10/21/2022, Additional history exists Tetanus booster 04/11/2025 04/11/2015, 08/25/2010 Pap test for age 21-65 09/18/2026 2, 09/18/2021, 11/30/2017 (Completed outside [facility]) Tdap Completed 04/11/2015, 08/25/2010 HIV for age 15-65 Completed 09/18/2021, , 02/11/2017 Hepatitis C screening for ag e 18-79 Completed 09/23/2022, 09/18/2021 Advance Directives Latest Code Status on File Code Status Date Activated Date Inactivated Comments Full Code 05/01/2015 3:27 PM 05/01/2015 10:16 PM Code Status History Code Status Date Activated Date Inactivated Comments Full Code 06/17/2007 7:53 AM 06/18/2007 7:34 AM Full Code 06/16/2007 7:25 PM 06/17/2007 7:53 AM Care Teams Character Artist Relationship Specialty Start Date End Date Yelitza Martino DO [address] [place] [address] PCP - General Internal Medicine 02/24/16
[2023-04-06 23:12] LABS: Chlamydia DNA Amplified* Not Detected (No Detected); GC DNA Amplified* Not Detected (No Detected)
== END 2023-04-06 17:13 | disposition home or self-care (01) ==
LOC: NFLDUCREF 17:13
PROVIDERS: PCP Internal Medicine; Visit Provider Registered Nurse
DX: N89.8 Other specified noninflammatory disorders of vagina (principal); Z11.3 Encounter for screening for infections with a predominantly sexual mode of transmission
CPT/HCPCS: 87491; 87591

== ENCOUNTER 2023-05-15 15:42 | Emergency (ER) | payer MEDICAID, SELFPAY ==
[2023-05-15 15:49] VITALS: BP 110/77; PULSE 93; RESP 24; TEMP 36.8; O2SAT 100; BMI 26.4
--- NOTE | 2023-05-15 16:10 | ED_ITS ---
HPI - SOB/Dyspnea General Time Seen by Provider: 16:11 Date Seen: 05/15/23 Chief Complaint: Shortness of Breath/Dyspnea Stated Complaint: shortness of breath, asthma Time Seen by Provider: 05/15/23 15:45 Source: patient and RN notes reviewed Mode of arrival: ambulatory Limitations: no limitations History of Present Illness HPI Narrative: This 43-year-old female with underlying asthma is coming in with concern of shortness of breath, difficulty catching her breath. She flew to [place] last weekend, flew in on Wednesday. On the way down she wore her mask but on the way back she states it was less crowded in she did not wear her mask. By Wednesday evening she was not feeling well. She is having nasal drainage which is clear, postnasal drainage. Some coughing. She just feels like she cannot catch her breath. She starting to feel burning with breathing. She has some mild coughing in there is increased burning with coughing. The burning is inside her chest. She has no underlying baseline chest pain it is with breathing and coughing. She has not noted any fevers but admits she has not taken her temperature. She has been using her asthma medicines. She was sick with influenza in December, RSV in February. Patient has a Mirena IUD. Patient has tried Mucinex and been on her inhalers. MD elicited complaint: shortness of breath Pertinent past history: asthma Related Data Home oxygen amount: none Home Medications Medication Instructions Recorded Confirmed albuterol sulfate 2.5 mg/3 mL mg 01/08/22 04/17/23 (0.083 %) solution for nebulization budesonide-formoterol HFA 160 inhalation 01/08/22 04/17/23 mcg-4.5 mcg/actuation aerosol inhaler (Symbicort) ipratropium 0.5 mg-albuterol 3 mg ml inhalation 01/08/22 04/17/23 (2.5 mg base)/3 mL nebulization soln loratadine 10 mg tablet mg 01/08/22 04/17/23 montelukast 10 mg tablet mg 01/08/22 04/17/23 Previous Rx's Medication Instructions Recorded fluticasone furoate 27.5 2 spray intranasal DAILY #9.1 mL 01/08/22 mcg/actuation nasal spray,suspension Allergies Allergy/AdvReac Type Severity Reaction Status Date / Time nalbuphine [From Nubain] Allergy Verified 05/15/23 15:53 Review of Systems Status of ROS: Reports: 6 or more systems reviewed and unremarkable except as noted in History and below [facility] Medical History (Updated 05/15/23 @ 17:55 by Peri Pat MD) Asthma ?J45.909 - Unspecified asthma, uncomplicated (ICD-10) Social History Smoking Status: Never smoker Do you use any of these nicotine containing products: None Second hand tobacco smoke exposure: No How often do you have a drink containing alcohol: never How often do you have six or more drinks on one occasion: Never AUDIT-C Alcohol total score: 0 Non-prescribed substance use: denies use service: No Exam Const: Vital Signs, click to edit/add: Vital Signs - 24 hr 05/15/23 15:49 05/15/23 16:20 05/15/23 16:39 Temperature 98.2 F Pulse Rate [Pulse Oximeter] 93 94 Respiratory Rate 24 Blood Pressure [Ri ght Upper Arm] 110/77 Pulse Oximetry 100 100 99 Oxygen Delivery Me thod Room Air Room Air 05/15/23 16:59 Temperature Pulse Rate [Pulse Oximeter] 88 Respiratory Rate Blood Pressure [Ri ght Upper Arm] Pulse Oximetry 100 Oxygen Delivery Me thod Room Air Patient is alert, interactive, no apparent distress but do note she is tachypneic. She is oxygenating 98-100% on room air. She does have to stop in breathe, do really see that she is tachypneic during my interaction with her. Pupils are equal round reactive, sclerae clear. TMs canals without any evidence of infection. Anterior nares look normal. Oropharynx normal mucosa no exudates erythema, will hydrated. No jugular venous distension no cervical adenopathy no thyromegaly masses or nodules. Lungs are clear, good air entry, no wheezing or crackles. CV regular rate and rhythm, no murmur, normal S1-S2, no S3-S4. Her speech is not hoarse. Documenting provider has reviewed patient's vital signs: yes Course Course ED Course: Will monitor patient on pulse oximetry. She does not seem to need any breathing treatments, she has no wheezing and has good air entry, no significant expiratory changes. Will get portable chest x-ray to start, do full complement of labs. With her component of shortness of breath, will consider other entities such as possible cardiac complications of viral disease. Will look at EKG, troponin, D-dimer, venous blood gas among other laboratory values. Nursing staff appropriately did do a triple swab. This certainly could be viral respiratory infection with some early exacerbation of her asthma. Will see there is any clinical indication for antibiotics or early bacterial pneumonia. Reevaluation(s) Time of Reevaluation #1: 17:48 Reevaluation #1: Reviewed normal chest x-ray, normal lab findings with her. Discussed options, we will treat with prednisone for viral induced asthma exacerbation. We did discuss the triple swab is negative but she certainly very likely has an und erlying upper respiratory infection with a different virus. Vital Signs Vital signs: Initial Vital Signs Temperature 98.2 F 05/15/23 15:49 Temperature Source Temporal Artery Scan 05/15/23 15:49 Pulse Rate 93 05/15/23 15:49 Respiratory Rate 24 05/15/23 15:49 Blood Pressure 110/77 05/15/23 15:49 Blood Pressure Mean 88 05/15/23 15:49 Blood Pressure Position Sitting 05/15/23 15:49 Pulse Oximetry 100 05/15/23 15:49 Oxygen Delivery Method Room Air 05/15/23 15:49 Vital Signs Temperature 98.2 F 05/15/23 15:49 Pulse Rate 93 05/15/23 15:49 Respiratory Rate 24 05/15/23 15:49 Blood Pressure 110/77 05/15/23 15:49 Pulse Oximetry 100 05/15/23 15:49 Oxygen Delivery Method Room Air 05/15/23 15:49 Temperature 98.2 F 05/15/23 15:49 Pulse Rate 88 05/15/23 16:59 Respiratory Rate 24 05/15/23 15:49 Blood Pressure 110/77 05/15/23 15:49 Pulse Oximetry 100 05/15/23 16:59 Oxygen Delivery Method Room Air 05/15/23 16:59 MDM - SOB/Dyspnea Lab Data Attestation: I reviewed the patient's lab results. Labs: Lab Results 05/15/23 05/15/23 Range/Units 15:55 16:37 WBC 5.23 (4.50-11.00) K/uL RBC 4.41 (4.00-5.20) m/uL Hgb 13.9 (12.0-16.0) gm/dL Hct 42.0 (33.0-51.0) % MCV 95 (80-100) fL MCH 32 (26-34) pg MCHC 33 (32-36) gm/dL RDW Coeff of Anil 12.8 (11.5-15.5) % Plt Count 237 (140-440) K/uL Neut % (Auto) 64.6 (42.0-72.0) % Lymph % (Auto) 20.1 (20-44) % [place] % (Auto) 10.9 (0.0-11.0) % Eos % (Auto) 3.6 (0.0-7.0) % Baso % (Auto) 0.4 (0.0-3.0) % Neut # (Auto) 3.38 (1.7-7.0) K/uL Lymph # (Auto) 1.05 (0.90-2.90) K/uL [place] # (Auto) 0.60 (0.00-0.90) K/UL Eos # (Auto) 0.19 (0.00-0.50) K/uL Baso # (Auto) 0.02 (0.00-0.30) K/uL Abs Immat Gran (auto) 0.02 (0.00-0.30) K/uL Imm/Tot Granulo (auto) 0.4 % D-Dimer Quant (PE/DVT) 0.29 (0.00-0.50) ug/ml VBG pH 7.456 H (7.32-7.43) VBG pCO2 40 (40-50) mmHG VBG pO2 < 30.1 (25-47) mmHG VBG HCO3 28 (21-28) mmol/L Sodium 136 (135-149) mmol/L Potassium 3.6 (3.6-5.1) mmol/L Chloride 103 (96-114) mmol/L Carbon Dioxide 26 (20-32) mmol/L Anion Gap 7 (7-15) mEq/L BUN 11 (5-24) mg/dL Creatinine 0.6 (0.5-1.5) mg/dL Estimated Creat Clear 133.43 Estimated GFR 116 ml/min Glucose 93 (60-115) mg/dL Calcium 9.0 (8.4-10.6) mg/dL Troponin I < 0.01 L (0.01-0.04) ng/mL C-Reactive Protein < 0.5 L (0.5-1.0) mg/dL NT-Pro-B Natriuret Pep 28 pg/mL SARS-CoV-2 (PCR) Negative SARS-CoV-2 (Negative) Influenza Type A (PCR) Negative PCR FLU A (Negative) Influenza Type B (PCR) Negative PCR FLU B (Negative) RSV (PCR) Negative PCR RSV (Negative) Imaging Data Chest x-ray: Attestation: I have reviewed the pertinent imaging results. My impression: Hyperinflation but no evidence infiltrate, do not appreciate any pneumothorax. Await Radiology over-read. Radiologist's impression: Patient: TRUDY DE LEON Facility:?[facility] Patient ID:?[id number] Site Patient ID:?[id number]. Site :?[id number] Study:?XRay Chest Portable-05/15/2023 4:36:52 PM Ordering Physician:?Peri Pat Final Report: INDICATION: To kidney a. Asthma. TECHNIQUE: Portable chest. Comparison 02/24/2023. FINDINGS: Normal cardiac mediastinal silhouette. Lungs are clear. No effusion or pneumothorax. IMPRESSION: No acute pulmonary process. Dictated by Katelin Dillon MD @ 05/15/2023 5:00:37 PM (Electronic Signature) ECG Data Attestation: I personally reviewed and interpreted this ECG as follows: (Normal sinus rhythm, 84 beats per minute. No evidence of any ischemia or infarct. QT corrected 423 milliseconds.) ECG interpretation date: 05/15/23 ECG interpretation time: 16:50 Prior ECG tracings: not available for review Discharge Plan Discharge Clinical Impression: Asthma with acute exacerbation Patient Disposition: Home, Self-Care Condition: Stable Instructions: Asthma (ED) Additional Instructions: Start prednisone and take as prescribed. Do recommend taking prednisone with food. If you are worsening, have concerns that her respiratory status is worsening, please seek re-evaluation. Continue with your baseline asthma medicines. Note provided to be off work Wednesday. Activity Level: Activity as Tolerated Prescriptions: No Action ipratropium-albuterol 0.5 mg-3 mg(2.5 mg base)/3 mL solution for nebulization INHALATION Patient Comments: INHALE 3 ML VIA A NEBULIZER 4 TIMES DAILY FOR 3 DOSES. albuterol sulfate 2.5 mg /3 mL (0.083 %) solution for nebulization Patient Comments: USE 1 VIAL VIA NEBULIZER EVERY 4 HOURS WHILE AWAKE montelukast 10 mg tablet Patient Comments: TAKE 1 TABLET BY MOUTH AT BEDTIME loratadine 10 mg tablet budesonide-formoterol [Symbicort] 160-4.5 mcg/actuation HFA aerosol inhaler INHALATION Patient Comments: INHALE 2 PUFFS BY MOUTH TWICE DAILY fluticasone furoate 27.5 mcg/actuation spray,suspension 2 spray intranasal DAILY Qty: 9.1 0RF Rx Instructions: into each nostril Follow Up/Referrals: Yelitza Martino [Primary Care Provider] - [facility]
[2023-05-15 16:20] VITALS: O2SAT 100
--- NOTE | 2023-05-15 16:20 | XR_ITS ---
Patient: TRUDY DE LEON Facility:?[facility] Patient ID:?[id number] Site Patient ID:?[id number]. Site :?[id number] Study:?XRay-Chest Portable-05/15/2023 4:36:52 PM Ordering Physician:Pollo Pat Final Report: INDICATION: To kidney a. Asthma. TECHNIQUE: Portable chest. Comparison 02/24/2023. FINDINGS: Normal cardiac mediastinal silhouette. Lungs are clear. No effusion or pneumothorax. IMPRESSION: No acute pulmonary process. Dictated by Katelin Dillon MD @ 05/15/2023 5:00:37 PM Signed by:?Katelin Dillon MD @05/15/2023 5:00:37 PM (Electronic Signature)
[2023-05-15 16:39] VITALS: PULSE 94; O2SAT 99
[2023-05-15 16:40] LABS: HCO3 VBG 28 mmol/L (21-28); PCO2 VBG 40 mmHG (40-50); PO2 VBG < 30.1 mmHG (25-47); pH VBG 7.456 (7.32-7.43)
[2023-05-15 16:44] LABS: Basophils Absolute Auto 0.02 K/uL (0.00-0.30); Basophils Percent Auto 0.4 % (0.0-3.0); Eosinophils Absolute Auto 0.19 K/uL (0.00-0.50); Eosinophils Percent Auto 3.6 % (0.0-7.0); Hemoglobin* 13.9 gm/dL (12.0-16.0); Immature Granulocytes Abs Auto 0.02 K/uL (0.00-0.30); Immature Granulocytes Pct Auto 0.4 %; Lymphocytes Absolute Auto 1.05 K/uL (0.90-2.90); Lymphocytes Percent Auto 20.1 % (20-44); Mean Corpuscular HGB Conc 33 gm/dL (32-36); Mean Corpuscular Hemoglobin 32 pg (26-34); Mean Corpuscular Volume 95 fL (80-100); Monocytes Percent Auto 10.9 % (0.0-11.0); Neutrophils Absolute Auto 3.38 K/uL (1.7-7.0); Neutrophils Percent Auto 64.6 % (42.0-72.0); Platelet Count* 237 K/uL (140-440); RDW Coefficient of Variation % 12.8 % (11.5-15.5); Red Blood Count 4.41 m/uL (4.00-5.20); White Blood Count* 5.23 K/uL (4.50-11.00)
[2023-05-15 16:45] LABS: Slide Review Reflex No
[2023-05-15 16:52] LABS: PCR FLU A Negative PCR FLU A (Negative); PCR FLU B Negative PCR FLU B (Negative); PCR RSV Negative PCR RSV (Negative); SARS PCR* Negative SARS-CoV-2 (Negative)
[2023-05-15 16:56] LABS: Chloride* 103 mmol/L (96-114)
[2023-05-15 16:57] LABS: Potassium* 3.6 mmol/L (3.6-5.1); Sodium* 136 mmol/L (135-149)
[2023-05-15 16:59] VITALS: PULSE 88; O2SAT 100
[2023-05-15 17:00] LABS: Anion Gap 7 mEq/L (7-15); Blood Urea Nitrogen* 11 mg/dL (5-24); Carbon Dioxide* 26 mmol/L (20-32); Creatinine* 0.6 mg/dL (0.5-1.5); Est. Creatinine Clearance* 133.43; Estimated Glomerular Filt Rate 116 ml/min
[2023-05-15 17:01] LABS: Glucose* 93 mg/dL (60-115)
[2023-05-15 17:02] LABS: D Dimer Quantitative* 0.29 ug/ml (0.00-0.50)
[2023-05-15 17:12] LABS: C Reactive Protein* < 0.5 mg/dL (0.5-1.0); NT Pro B Type NatriureticPept* 28 pg/mL
[2023-05-15 17:13] LABS: Troponin I* < 0.01 ng/mL (0.01-0.04)
== END 2023-05-15 18:15 | disposition home or self-care (01) ==
PROVIDERS: Emergency Provider Family Medicine; PCP Internal Medicine
DX: J45.901 Unspecified asthma with (acute) exacerbation (principal)
CPT/HCPCS: 36415; 71045; 80048; 82803; 83880; 84484; 85025; 85379; 86140; 87631; 93005; 94761; 96374; 96375; 99284; 99285

== ENCOUNTER 2023-09-09 16:58 | Outpatient (CLI) | payer MEDICAID, SELFPAY ==
--- OUTSIDE RECORDS SUMMARY | 2023-09-09 17:01 | XMS_ITS | Clinical Summary ---
Author Organization [employer] [facility] Address [place], [place] [address] Care Team Providers Care Musician Instrumental Name Role Phone Yelitza Martino Primary Care [...] one time for 1 dose. 1 Device 02/13/2016 Active hydrOXYzine HCL (ATARAX) 25 mg tabletIndications: Anxiety Take 0.5-1 tablets by mouth every 6 hours if needed for Anxiety or Itching. 25 tablet 01/24/2020 Active cyclobenzaprine (FLEXERIL) 5 mg tabletIndications: [...] while awake. 180 mL 11 01/17/2021 Active acyclovir (ZOVIRAX) 200 mg capsuleIndications :Genital [...] (ASTELIN) nasal sprayIndications:C hronic rhinitis Inhale 1 [place] into affected nostril(s) two times daily. 30 [...] once daily. 90 Tablet 9 06/18/2022 Active Symbicort 160-4.5 mcg/actuation (160-4.5 mcg each actuation) inhalerIndications :Severe asthma without complication, unspecified whether persistent Inhale 2 Puffs by mouth two times daily. 30.6 g 3 07/07/2023 Active fluticasone (50 mcg per actuation) nasal solution (FLONASE)Indicatio ns:Chronic rhinitis Inhale 2 Sprays to both nostrils once daily. 48 g 3 07/08/2023 Active methylphenidate HCl (Ritalin) 5 mg tabletIndications: Attention deficit hyperactivity disorder (ADHD), predominantly inattentive type Take 1 Tablet (5 mg) by mouth once daily in the afternoon. 30 Tablet 08/11/2023 Active Concerta 18 mg extended-release tabletIndications: Attention deficit hyperactivity disorder (ADHD), predominantly inattentive type Take 1 Tablet (18 mg) by mouth once daily. 30 Tablet 08/11/2023 Active Concerta 18 mg extended-release tabletIndications: Attention deficit hyperactivity disorder (ADHD), predominantly inattentive type Take 1 Tablet (18 mg) by mouth once daily. 30 Tablet 04/25/2023 4 Discontinu ed(Reorder (E-cancel not sent)) methylphenidate HCl (Ritalin) 5 mg tabletIndications: Attention deficit hyperactivity disorder (ADHD), predominantly inattentive type Take 1 Tablet (5 mg) by mouth once daily in the afternoon. 30 Tablet 04/28/2023 4 Discontinu ed(Reorder (E-cancel not sent)) Active Problems Problem Noted Date Diagnosed Date Methamphetamine use disorder , moderate, in sustained remission 10/21/2022 Controlled substance agreement signed 02/23/2022 Overview: 02/23/22, Ana Rodas NP, Psychiarty Pap smear for cervical cancer screening 11/20/19 Overview: 09/2021 NIL/HPV Negative Plan: Pap and [...] Encounters Date Type Department Care Team Description 07/07/[address] [facility] [address] [place] [address] Yelitza Martino, DO Questions (fluticasone (50 mcg per actuation) nasal solution (FLONASE)) 07/06/2023 Refill [facility] [address] [place] [address] [facility] [address] [place] [address] Logan Silva, DO Refill Request (budesonide-formoteroL (SYMBICORT) 160-4.5 mcg/actuation (160-4.5 mcg each actuation) inhaler) from Last 3 Months Immunizations Name Administration [...] Years Used Date Smoking Tobacco: Former Cigarettes Passive Smoke Exposure: Never Smokeless Tobacco: Never Tobacco Cessation:Counseling Given: Not Answered Alcohol Use Standard Drinks/Week Comments No 0 (1 standard drink = 0.6 oz pur e alcohol) PHQ-2 Answer Date Recorded PHQ-2 TOTAL SCORE 2 02/24/2023 Social Connections Answer Date Recorded Frequency of Communication with Friends and Fami ly Not on file 05/31/2023 Financial Resource Strain Answer Date R ecorded [...] Outcome GA Total Labor Labor/2nd/3rd Weight Sex Type Anes PTL Mallory A1 A5 Name Clin 2002 Term F Living 2005 Term F Living 2007 Term F Living Last Filed Vital Signs Vital Sign Reading Time Taken Comments Blood Pressure 110/59 02/24/2023 8:50 AM ASSET ADMINISTRATOR Pulse 100 02/24/2023 8:50 AM ASSET ADMINISTRATOR Temperature 36.8 ??C (98.2 ??F) 06/18/2022 10:40 AM C DT Respiratory Rate 12 10/06/2022 10:38 AM CDT Oxygen Saturation 98% 09/23/2022 10:36 AM CDT Inhaled Oxygen Concentration - - Weight 81.9 kg (180 lb 9.6 oz) 02/24/2023 8:50 A M ASSET ADMINISTRATOR Height 175.3 cm (5' 9) 09/23/2022 10:36 AM CDT Body Mass Index 26.67 09/23/2022 10:36 AM CDT Plan of Treatment Health Maintenance Due Date Last Done Comments Pneumococcal series for age 6-64 (1 of 2 - PCV) 02/28/1988 COVID-19 vaccine series ( - 2022- season) 2022 BMI (ht and wt on same day) for age 18+ 09/24/2023 09/23/2022, 06/18/2022, 05/29/2022, Additional history exists Influenza for age 9-49 10/17/2023 3, 01/24/2020, 12/08/2018, Additional history exists Depression screening for age 12+ 02/25/2024 02/24/2023, 10/21/2022, 10/21/2022, Additional history exists Tetanus booster 04/11/2025 04/11/2015, 08/25/2010 Pap test for age 21-65 09/18/2026 2, 09/18/2021, 11/30/2017 ([facility] Tdap Completed 04/11/2015, 08/25/2010 HIV for age 15-65 Completed 09/18/2021, , 02/11/2017 Hepatitis C screening for ag e 18-79 Completed 09/23/2022, 09/18/2021 Procedures Procedure Name Priority Date/Time Associated Diagnosis Comments LC HCV ANTIBODY RFX TO QUANT PCR Routine 09/23/2022 12:14 PM CDT Myalgia Arthralgia, unspecified joint ANTI HIV 1/2 Routine 09/18/2021 10:16 AM CDT Chronic fatigue HPV THIN PREP Routine 09/18/2021 9:55 AM CDT Screening for cervical cancer from Last 3 Months or Most Recently Relevant to Health Maintenance Results * LC HCV ANTIBODY RFX TO QUANT PCR (09/23/2022 12:14 PM CDT) [facility] HCV Ab Non Reactive Non Reactive 09/26/2022 7:17 AM CDT [facility] ([facility]) Blood BLOOD SPECIMEN / Unknown Venipuncture / Unknown 09/23/2022 12:14 PM CDT 09/23/2022 12:20 PM CDT Narrative [facility] ([facility]) - 09/26/2022 7:17 AM CDT Performed at: ??01 - [address] ??[id number] Construction Grip: Chicho Forbes MD, Phone: ??[phone] Yelitza Martino DO LABORATORY Performing Organization Address City/[facility]/ZIP Co de Phone Number [facility] ([facility]) [address] [place] [address] * ANTI HIV 1/2 (09/18/2021 10:16 AM CDT) [facility] HIV-1/HIV-2 ANTIBODY Non-Reacti ve Non-Reacti ve 09/19/2021 8:36 PM CDT [facility] Comment:HIV-1 p24 and HIV-1/ HIV-2 Ab not detected. Blood BLOOD SPECIMEN / Unknown Venipuncture / Unknown 09/18/2021 10:16 AM CDT 09/18/2021 10:21 AM CDT Ashley Carbajal MD SEND OU TS [facility] [address] [place] [address], * HPV HIGH RISK (09/18/2021 9:55 AM CDT) TYPE 16 Negative Negative 09/23/2021 11:38 AM CDT [facility] TYPE 18 Negative Negative 09/23/2021 11:38 AM CDT [facility] OTHER HIGH RISK TYPES Negative Negative 09/23/2021 11:38 AM CDT [facility] Other (Cervical) Non-Blood / Unknown 09/18/2021 9:55 AM CDT 09/19/2021 12:12 PM CDT Narrative [facility] - 09/23/2021 11:38 AM CDT HPV types 16, 18, 31, 33, 35, 39, 45, 51, 52, 56, 58, 59, 66 and 68 DNA were undetectable or below the pre-set threshold. Methodology: Efe [address]ad 4800 HPV Test Ashley Carbajal MD [facility] [address] [place] [address], from Last 3 Months or Most Recently Relevant to Health Maintenance Advance Directives * Full Code (Latest Code Status on File) Date Activated Date Inactivated Comments 05/01/2015 3:27 PM 05/01/2015 10:16 PM * Full Code Date Activated Date Inactivated Comments 06/17/2007 7:53 AM 06/18/2007 7:34 AM * Full Code Date Activated Date Inactivated Comments 06/16/2007 7:25 PM 06/17/2007 7:53 AM Care Teams Musician Instrumental Relationship Specialty Start Date End Date Yelitza Martino DO [address] [place] [place] [address] PCP - General Internal Medicine 02/24/16
[2023-09-09 17:12] LABS: Basophils Absolute Auto 0.01 K/uL (0.00-0.30); Basophils Percent Auto 0.2 % (0.0-3.0); Eosinophils Absolute Auto 0.08 K/uL (0.00-0.50); Eosinophils Percent Auto 1.3 % (0.0-7.0); Hematocrit 41.9 % (33.0-51.0); Hemoglobin* 13.8 gm/dL (12.0-16.0); Immature Granulocytes Abs Auto 0.01 K/uL (0.00-0.30); Immature Granulocytes Pct Auto 0.2 %; Lymphocytes Absolute Auto 1.96 K/uL (0.90-2.90); Lymphocytes Percent Auto 32.9 % (20-44); Mean Corpuscular HGB Conc 33 gm/dL (32-36); Mean Corpuscular Hemoglobin 31 pg (26-34); Mean Corpuscular Volume 95 fL (80-100); Monocytes Percent Auto 7.4 % (0.0-11.0); Neutrophils Absolute Auto 3.46 K/uL (1.7-7.0); Platelet Count* 237 K/uL (140-440); RDW Coefficient of Variation % 12.3 % (11.5-15.5); White Blood Count* 5.96 K/uL (4.50-11.00)
[2023-09-09 17:16] LABS: Slide Review Reflex No
[2023-09-09 23:46] LABS: HIV 1/2/P24 Combo Screen* Negative (Negative)
== END 2023-09-09 16:59 | disposition home or self-care (01) ==
PROVIDERS: Family Medicine; PCP Internal Medicine
DX: L28.2 Other prurigo (principal)
CPT/HCPCS: 36415; 85025; 86703

== ENCOUNTER 2023-11-24 11:17 | Outpatient (CLI) | payer MEDICAID, SELFPAY ==
--- OUTSIDE RECORDS SUMMARY | 2023-11-24 11:21 | XMS_ITS | Clinical Summary ---
Author Organization [employer] [facility] Address [place], [place] [address] Care Team Providers Care Mortgage Servicing Specialist Name Role Phone Yelitza Martino Primary Care [...] 02/13/2016 Active hydrOXYzine HCL (ATARAX) 25 mg tabletIndications:A nxiety Take 0.5-1 tablets by mouth every 6 hours if needed for Anxiety or Itching. 25 tablet 01/24/2020 Active cyclobenzaprine (FLEXERIL) 5 mg tabletIndications:A cute bilateral low back pain with bilateral sciatica Take 1 Tablet (5 mg) by mouth 3 times daily if needed for Muscle Spasm. 15 Tablet 3 08/22/2020 Active meclizine (ANTIVERT) 12.5 mg tabletIndications:V ertigo Take 1 Tablet (12.5 mg) by mouth 3 times daily if needed. 30 Tablet 5 10/23/2020 Active albuterol (PROVENTIL) 0.083 % neb solutionIndications :Moderate persistent asthma without complication Inhale 3 mL (2.5 mg) via a nebulizer every 4 hours while awake. 180 mL 11 01/17/2021 Active acyclovir (ZOVIRAX) 200 mg capsuleIndications: Genital herpes simplex, unspecified site TAKE 2 CAPSULES(400 MG) BY MOUTH THREE TIMES DAILY FOR 5 DAYS 30 Capsule 3 08/01/2021 Active triamcinolone (ARISTOCORT) 0.1 % ointmentIndications :Keratosis pilaris Apply topically to affected area(s) two times daily. 80 g 1 11/06/2021 Active loratadine (CLARITIN) 10 mg tabletIndications:S easonal allergies TAKE 1 TABLET(10 MG) BY MOUTH EVERY DAY 90 Tablet 2 11/30/2021 Active azelastine 137 mcg/actuation (ASTELIN) nasal sprayIndications:Ch ronic rhinitis Inhale 1 [place] into affected nostril(s) two times daily. 30 mL 5 12/08/2021 Active albuterol-ipratropi um (DUONEB) (2.5-0.5 mg) in 3 mL NEBULIZATION solutionIndications :Moderate persistent asthma without complication Inhale 3 mL via a nebulizer 4 times daily. 1080 mL 9 06/18/2022 Active albuterol HFA (PRO-AIR; VENTOLIN; PROVENTIL) 90 mcg/actuation inhalerIndications: Moderate persistent asthma without complication Inhale 2 Puffs by mouth every 4 hours if needed for Shortness Of Breath or Wheezing. 1 Each 06/18/2022 Active budesonide-formoter oL (SYMBICORT) 160-4.5 mcg/actuation (160-4.5 mcg each actuation) inhalerIndications: Moderate persistent asthma without complication Inhale 2 Puffs by mouth two times daily. 3 Each 06/18/2022 Active ipratropium-albuter oL (COMBIVENT RESPIMAT) (20-100 mcg each actuation) mist inhalerIndications: Moderate persistent asthma without complication Inhale 1 Puff by mouth four times daily. 1 Each 06/18/2022 Active montelukast (Singulair) 10 mg tabletIndications:M oderate persistent asthma without complication Take 1 Tablet (10 mg) by mouth once daily. 90 Tablet 9 06/18/2022 Active Symbicort 160-4.5 mcg/actuation (160-4.5 mcg each actuation) inhalerIndications: Severe asthma without complication, unspecified whether persistent Inhale 2 Puffs by mouth two times daily. 30.6 g 3 07/07/2023 Active fluticasone (50 mcg per actuation) nasal solution (FLONASE)Indication s:Chronic rhinitis Inhale 2 Sprays to both nostrils once daily. 48 g 3 07/08/2023 Active methylphenidate HCl (Ritalin) 5 mg tabletIndications:A ttention deficit hyperactivity disorder (ADHD), predominantly inattentive type Take 1 Tablet (5 mg) by mouth once daily in the afternoon. 30 Tablet 08/11/2023 Active Concerta 18 mg extended-release tabletIndications:A ttention deficit hyperactivity disorder (ADHD), predominantly inattentive type Take 1 Tablet (18 mg) by mouth once daily. 30 Tablet 08/11/2023 Active Active Problems Problem Noted Date Diagnosed Date Methamphetamine use disorder , moderate, in sustained remission 10/21/2022 Controlled substance agreement signed 02/23/2022 Overview (02/23/2022): 02/23/22, Ana Rodas NP, Psychiarty Pap smear for cervical cancer screening 11/20/19 Overview (11/19/2021): 09/2021 NIL/HPV Negative Plan: Pap and HPV 09/2026 COVID-19 virus infection 03/07/2021 Overview (03/07/2021): Feb 2021 Sore throat 02/24/2021 Attention deficit hyperactiv ity disorder (ADHD), predominantly inattentive type 11/14/2020 Plantar fasciitis, bilateral 07/11/2020 COVID-19 vaccination declined 07/11/2020 Attention and concentration deficit 02/01/2018 Borderline personality disorder 01/27/2018 Methamphetamine use disorder , moderate, in early remission, dependence 01/27/2018 Mixed anxiety depressive disorder 11/04/2015 Overview (07/04/2020): Overview: Depression Anxiety Overview: Overview: Depression Anxiety Placenta previa in third trimester 05/29/2015 Herpes simplex type 2 infection 03/16/2013 Environmental allergies 03/16/2013 GERD (gastroesophageal reflux disease) 2 Unspecified personality disorder 11/19/2011 Polysubstance dependence, non-opioid, in remissi on 11/19/2011 Health Maintenance 08/25/2010 Overview (08/25/2010): n/a IUD (intrauterine device) in place 09/16/2007 Overview (10/06/2022): Mirena, due 2023 (8 years) Moderate persistent asthma without complication Resolved Problems Problem Noted Date Diagnosed Date Resolved Date Supervision of other normal 06/16/2007 10/07/2011 Herpes 07/04/2020 Encounters Date Type Department Care Team Description 11/17/2023 Telephone [facility] [address] [place] [address] Jessenia Moses Breast Problem (Left breast lump and pain) 11/17/2023 Travel 09/09/2023 Orders Only [facility] Scanner 1 scan: (1-Ord) [facility], 09/09/2023 from Last 3 Months Immunizations Name Administration [...] Comments Blood Pressure 110/59 02/24/2023 8:50 AM TRADITIONAL CHINESE HERBALIST Pulse 100 02/24/2023 8:50 AM TRADITIONAL CHINESE HERBALIST Temperature 36.8 ??C (98.2 ??F) 06/18/2022 10:40 AM C DT Respiratory Rate 12 10/06/2022 10:38 AM CDT Oxygen Saturation 98% 09/23/2022 10:36 AM CDT Inhaled Oxygen Concentration - - Weight 81.9 kg (180 lb 9.6 oz) 02/24/2023 8:50 A M TRADITIONAL CHINESE HERBALIST Height 175.3 cm (5' 9) 09/23/2022 10:36 AM CDT Body Mass Index 26.67 09/23/2022 10:36 AM CDT Plan of Treatment Upcoming Encounters Date Type Department Care Team (Late st Contact Info) Description 12/08/2023 11:00 AM CDT [facility]ment [facility] [address] [facility] [place] [address] 12/08/2023 11:30 AM CDT Appointment [facility] [address] [place] [address] Health Maintenance Due Date Last Done Comments Pneumococcal series for age 6-64 (1 of 2 - PCV) 02/28/1988 BMI (ht and wt on same day) for age 18+ 09/24/2023 09/23/2022, 06/18/2022, 05/29/2022, Additional history exists COVID-19 vaccine series ( - season) 2023 Influenza for age 9-49 10/17/2023 3, 01/24/2020, 12/08/2018, Additional history exists Depression screening for age 12+ 02/25/2024 02/24/2023, 10/21/2022, 10/21/2022, Additional history exists Tetanus booster 04/11/2025 04/11/2015, 08/25/2010 Pap test for age 21-65 09/18/2026 2, 09/18/2021, 11/30/2017 [facility] Tdap Completed 04/11/2015, 08/25/2010 HIV for age 15-65 Completed 09/18/2021, , 02/11/2017 Hepatitis C screening for ag e 18-79 Completed 09/23/2022, 09/18/2021 Procedures Procedure Name Priority Date/Time Associated Diagnosis Comments SCAN-LABORATORY REPORT 09/09/2023 12:00 AM CDT LC HCV ANTIBODY RFX TO QUANT PCR Routine 09/23/2022 12:14 PM CDT Myalgia Arthralgia, unspecified joint ANTI HIV 1/2 Routine 09/18/2021 10:16 AM CDT Chronic fatigue HPV HIGH RISK Routine 09/18/2021 9:55 AM CDT Screening for cervical cancer from Last 3 Months or Most Recently Relevant to Health Maintenance Results * SCAN-LABORATORY REPORT (09/09/2023 12:00 AM CDT) Scanner OTHER * LC HCV ANTIBODY RFX TO QUANT PCR (09/23/2022 12:14 PM CDT) [facility] HCV Ab Non Reactive Non Reactive 09/26/2022 7:17 AM CDT [facility] ([facility]) Blood BLOOD SPECIMEN / Unknown Venipuncture / Unknown 09/23/2022 12:14 PM CDT 09/23/2022 12:20 PM CDT Narrative [facility] ([facility] - 09/26/2022 7:17 AM CDT Performed at: ??[address] - [address] ??[id number] Senior Manager Mergers & Acquisitions: Chicho Forbes MD, Phone: ??[phone] Yelitza Martino DO LABORATORY Performing Organization Address City/[facility] de Phone Number [facility] ([facility]) [address] [place] [address] * ANTI HIV 1/2 (09/18/2021 10:16 AM CDT) [facility] HIV-1/HIV-2 ANTIBODY Non-Reacti ve Non-Reacti ve 09/19/2021 8:36 PM CDT [facility] Comment:HIV-1 p24 and HIV-1/ HIV-2 Ab not detected. Blood BLOOD SPECIMEN / Unknown Venipuncture / Unknown 09/18/2021 10:16 AM CDT 09/18/2021 10:21 AM CDT Ashley Carbajal MD SEND OU TS [facility] [address] [place] [address], * HPV HIGH RISK (09/18/2021 9:55 AM CDT) TYPE 16 Negative Negative 09/23/2021 11:38 AM CDT [facility] TYPE 18 Negative Negative 09/23/2021 11:38 AM CDT [facility] OTHER HIGH RISK TYPES Negative Negative 09/23/2021 11:38 AM CDT [facility] Other (Cervical) Non-Blood / Unknown 09/18/2021 9:55 AM CDT 09/19/2021 12:12 PM CDT Narrative [facility] - 09/23/2021 11:38 AM CDT HPV types 16, 18, 31, 33, 35, 39, 45, 51, 52, 56, 58, 59, 66 and 68 DNA were undetectable or below the pre-set threshold. Methodology: Efe Soledad 4800 HPV Test Ashley Carbajal MD [facility] [address] [place] [address], from Last 3 Months or Most Recently Relevant to Health Maintenance Advance Directives * Full Code (Latest Code Status on File) Date Activated Date Inactivated Comments 05/01/2015 3:27 PM 05/01/2015 10:16 PM * Full Code Date Activated Date Inactivated Comments 06/17/2007 7:53 AM 06/18/2007 7:34 AM * Full Code Date Activated Date Inactivated Comments 06/16/2007 7:25 PM 06/17/2007 7:53 AM Care Teams Mortgage Servicing Specialist Relationship Specialty Start Date End Date Yelitza Martino DO [address] [place] [id number] PCP - General Internal Medicine 02/24/16
== END 2023-11-24 11:18 | disposition home or self-care (01) ==
LOC: NFLDREF 11:19
PROVIDERS: PCP Internal Medicine; Visit Provider Registered Nurse
DX: Z01.419 Encounter for gynecological examination (general) (routine) without abnormal findings (principal); N39.46 Mixed incontinence; N92.0 Excessive and frequent menstruation with regular cycle; R32 Unspecified urinary incontinence; Z13.6 Encounter for screening for cardiovascular disorders; Z13.1 Encounter for screening for diabetes mellitus
CPT/HCPCS: 80061; 82947; 84443; 87086

== ENCOUNTER 2023-12-28 10:27 | Outpatient (RCR) | payer MEDICAID, SELFPAY ==
--- NOTE | 2023-12-28 12:52 | PT.OPEX ---
PT [place] Outpatient Eval PT [facility] Outpatient Eval Start: 12/28/23 09:44 Freq: Status: Active Protocol: Document 12/28/23 09:45 ARR (Rec: 12/28/23 12:49 ARR [id number]) E-signed By Yelitza Barrientos DPT Physical Therapy Outpatient Evaluation Insurance Information Recert Due Date 03/27/24 Insurance Name Medicaid Insurance Information/Comments [employer] Medical Diagnosis N39.46 mixed incontinence Treating Diagnosis N39.46 mixed incontinence K59.00 Constipation Referring MD Radha Chakraborty, [employer] [place]) Subjective Subjective -Subjective: Did PT in the past and got improvement then stopped and symptoms got worse . Has tried doing kegels for a week then will leak daily for 1-2 wks after this. Will need to change underwear daily, feels she isn?t doing them right. Has been drinking less, due to elevated urge. Feels she has a lot of bladder urgency. Feels her stream used to be very strong, but the last few months will void and feels it?s a slow trickle and must sit there longer to void. This is new. Feels like she can?t empty fully, stream will stop and go. Leakage ongoing a few months. -Getting in February. -Urinary: Will change underwear 2-3x/day, no pad. --Activity that causes leakage : exercising or jumping. Sometimes doesn?t know she leaked. --Delay of urination: Could delay but not sure. --Urinary urgency (any incontinence): Sometimes, especially when fully hydrated this will be increased. Yes. --Strain to start or stop urine stream: no --Hydration: doing sparkling water more recently 4-5 cans per day / 32 oz 1-2x (maybe 64 oz) / --Daytime urination: at home every 2 hours minimum. At work 5-6x/day. --Nocturia: will leak at night , can?t feel it happening. Slowly leaking at night. No pad at night. --Dysuria: no --Pressure/heaviness: no --Triggers: getting home. Drinking plain water. -Bowel: Can get really backed up and notices increased leakage when backed up. --Frequency: 3x/wk. --[place] chart: Type 4. Sometimes type 2. --Constipation: no urge to go --Do you feel bowels fully evacuate with BM: Yes when more constipated --Fecal leakage: no --Fecal urgency: sometimes with urge --Straining with BM: yes --Do you use pressure with hands to assist with BM: since 3rd daughter will have to use pressure in vaginal opening or at perineum. --Flatus incontinence: no --Abdominal/rectal pain or symptoms: after BM can get abdominal cramping into abdominal wall --Do you take bowel supplements: will take Miralax if hasn?t gone for several days -Sexual: Hasn?t had intercourse x 6 years. But during this time did have pain . Getting in 6 months, hopes it resolves -Menstrual history: IUD, still cycles -: G/P 05/19 (23, 20, 18, 10 y/o) 3 vaginal, last one --Length of labor/pushing: no --Forceps or vacuum: none --Tearing or episiotomy: No episiotomy. Tore with a few of them with stitches. OTHER: --Pain with gynocological exam : no --Any chronic yeast infections : has had BV infections, not for a while --Chronic UTIs: no --Vaginal dryness: no --Medications taken for bladder: NA -Surgical PMHx: -PMHx: GERD, anxiety, depression, ADHD, plantar fasciitis, asthma, Mirena IUD. Over the last 1-2 years, feels that cervix has dropped 6 or more inches downward. -Current exercise: none. Used to do [place] but now must now must a pad. -Orthopedic issues: hip pain. Low back pain -Goals: learn how to do a kegel properly so it doesn?t cause leakage, stop leakage, reduce frequency of urination Objective Other/Pertinent Objective INTERNAL EXAMINATION INTRAVAGINAL 12/28/23: EXTERNAL EXAM: -Sensation: intact to touch -Gaping: yes ---Anterior wall: descent ---Posterior wall: descent -Tension/scar: none -Skin integrity: slight pale discoloration to vestibule -Perineum: lowered (convex) -Cough: nil -Lifting contraction: nil -Bulge: bulge -Prolapse: anterior wall / posterior wall -Hemhorroids: none VAGINAL INTERNAL EXAM: -Prolapse: descent of anterior and posterior wall anteriorly to level of hymen POPQ (performed pt hooklying with cue to ?bear down and hold breath as though having a BM? or ?bear down.? Bear down sustained 6-8 sec x 3 for first measure then 1-3 reps for subsequent measures. -GH: 3.0 -PB: 6.5 -LH (GH+PB): 9.5 -TVL: 11 -C: 8 -D: NT -Aa: 0.5 -Ba: -1.0 -Ap: 0.5 -Bp: -1.0 Tenderness/pain to palpation/ tone: -Layer 1: ischiocavernosus / bulbospongiousus / superficial transverse perineal on RIGHT -Layer 2: transverse perineal/ sphincter urethrovaginalis on RIGHT -Layer 3: puborectalis / pubococcygeus / iliococcygeus ? inc?d tone R>L and TTP throughout *Scar tissue on R side near 7 oclock position Strength ( R / C / L): -Power (MMT): 2 -Endurance: 5 -Reps:3 Poor relaxation. Difficulty initiating squeeze Assessment Assessment/Impression Pt is a 43 y/o female who presents with concerns of urinary leakage with urgency and constipation. Signs and symptoms likely indicating / consistent with urge incontinence with underlying constipation likely secondary to tissue descent of anterior and posterior greene <0.5 cm past level of hymen with bearing down with LH measurement of 9.5 cm. Patient also has notable objective findings including PFM weakness, urethral hypermobility, PFM weakness with contraction at 2/5 also likely contributing to the problem. Patient is a good candidate for skilled therapy to target deficits described above. Skilled PT intervention is necessary for use of therapeutic exercise manual therapy, neuromuscular re- education, gait training, and therapeutic activity. Functional impairments include difficulty with: urinary leakage during activity and at night. See appropriate sections of PT eval for complete list of goals and POC . D/C plan and criteria is for pt to achieve the goals as listed below or until max rehab potential is met. Pt was agreeable with plan of care and goals established. Evaluation and internal vaginal PFM assessment/ treatment with patient consent was requested and obtained. Plan of Care Rehabilitation Potential Good Physical Therapy Goals STG (within 6 visits) 1) Pt will demonstrate proper coordination of motor recruitment patterns for PF then TA activation during isometric activation while maintaining diaphragmatic breathing pattern 2)Pt will recall at least 4 strategies to improve pressure management in order to reduce instances of incontinence outside PT sessions 3) Pt will report at least 40% improvement in urinary leakage since start of therapy for improved health of vaginal tissues LTG (within 12 visits) 1) Pt will demonstrate proper coordination of motor recruitment patterns for PF then TA activation during dynamic UE/LE movements in all postures while maintaining diaphragmatic breathing pattern 2) Pt will report at least 80% improvement in urinary leakage since start of therapy for improved health of vaginal tissues 3) Pt will report ability to have a bowel movement without bearing down, at least type 3- 4 on bristol chart. 4) Pt will report ability to empty bladder using double voiding techniques to reduce post-void dribble and straining Treatment Plan/Direct Interventions Biofeedback,Electrical Stimulation,Joint Mobilization ,Manual Therapy,Neuromuscular Re-ed,Self-Care/Home Management,Therapeutic Exercises Frequency/Duration 1x/wk x 12 visits in 90 days Patient Will Be Discharged From Therapy Skills [facility],Independent w/ HEP Evaluation Billing Untimed Code Treatment Minutes 30 Complexity Low Certification Information Initial Certification Date 12/28/23 Ending Certification Date 03/27/24 Provider Signature Required Yes Provider Signature Shows Agreement With POC & Medical Necessity Physician NPI Number Write NPI# Here Physician Comment/Change : Physician Signature & Date Requested Please Sign/Date Here
== END 2024-03-16 12:32 | disposition home or self-care (01) ==
PROVIDERS: PCP Internal Medicine; Visit Provider Registered Nurse
DX: N39.46 Mixed incontinence (principal); K59.00 Constipation, unspecified; Z51.89 Encounter for other specified aftercare
CPT/HCPCS: 97161; 97535

== ENCOUNTER 2023-12-30 15:46 | Outpatient (RCR) | payer MEDICAID, SELFPAY | END 2024-04-28 23:59 | disposition home or self-care (01) | PROVIDERS: PCP Internal Medicine; Visit Provider Orthopaedic Surgery | DX: M79.672 Pain in left foot (principal); M79.671 Pain in right foot; M76.822 Posterior tibial tendinitis, left leg; Z51.89 Encounter for other specified aftercare | CPT/HCPCS: 97110; 97112; 97161 ==

== ENCOUNTER 2024-01-11 18:29 | Emergency (ER) | payer MEDICAID, SELFPAY ==
[2024-01-11 18:33] VITALS: BP 123/80; PULSE 84; RESP 18; TEMP 36.6; O2SAT 99; BMI 27.3
--- NOTE | 2024-01-11 18:54 | CRLHL7_ITS ---
For Patients: As a result of the Century Cures Act, medical imaging exams and procedure reports are released immediately into your electronic medical record. You may view this report before your referring provider. If you have questions, please contact your health care provider. Indication: Cough Technique: PA and lateral views of the chest. Comparison: 08/19/2017. Findings: Normal cardiomediastinal silhouette. No focal consolidation, pleural effusions, or visualized pneumothorax. Impression: No acute cardiopulmonary disease. Dictated by Rafael Tucker MD @ 01/11/2024 7:57:24 PM (Electronically Signed)
--- NOTE | 2024-01-11 18:57 | ED_ITS ---
HPI - General Adult General Date Seen: 01/11/24 Chief complaint: Cough Stated complaint: Shortness of breath, lethargy, cough Time Seen by Provider: 01/11/24 18:47 Source: patient Mode of arrival: ambulatory Limitations: no limitations History of Present Illness HPI narrative: Patient is a 43-year-old woman who says she has been sick for about a week to week and half with upper respiratory symptoms including cough, congestion, fatigue and aches. No fevers that she knows of. She saw her primary doctor about 5 days ago and so she was prescribed prednisone. She says that her primary doctor told her her lungs sounded ?a little pneumonia-y, but that she thought the prednisone would take care of it. No x-ray was done. She says that she has been feeling gradually improved but still feels pretty run down and became worried that she might have pneumonia instead. She also says that she has been having some stress incontinence related to coughing and yesterday her urine felt hot. She is wondering if she has a bladder infection. She has not had flank pain, abdominal pain, vomiting or diarrhea. She does not smoke, does have a history of mild asthma. Related Data Home Medications ?Medication ?Instructions ?Recorded ?Confirmed albuterol sulfate 2.5 mg/3 mL mg 01/08/22 11/24/23 (0.083 %) solution for nebulization budesonide-formoterol HFA 160 inhalation 01/08/22 11/24/23 mcg-4.5 mcg/actuation aerosol inhaler (Symbicort) ipratropium 0.5 mg-albuterol 3 mg ml inhalation 01/08/22 11/24/23 (2.5 mg base)/3 mL nebulization soln loratadine 10 mg tablet mg 01/08/22 11/24/23 montelukast 10 mg tablet mg 01/08/22 11/24/23 Previous Rx's ?Medication ?Instructions ?Recorded fluticasone furoate 27.5 2 spray intranasal DAILY #9.1 mL 01/08/22 mcg/actuation nasal spray,suspension ipratropium 0.5 mg-albuterol 3 mg 3 ml inhalation Q6-8H PRN #90 mL 01/11/24 (2.5 mg base)/3 mL nebulization soln Allergies Allergy/AdvReac Type Severity Reaction Status Date / Time cat dander Allergy Verified 11/24/23 10:09 dog dander Allergy Verified 11/24/23 10:09 [email or web address] (From [place]) Allergy Verified 11/24/23 10:09 seasons Allergy Uncoded 11/24/23 10:09 Review of Systems Status of ROS: Reports: 6 or more systems reviewed and unremarkable except as noted in History and below [facility] Medical History Chronic vaginitis ?N76.1 - Subacute and chronic vaginitis (ICD-10) HSV-2 (herpes simplex virus 2) infection ?B00.9 - Herpesviral infection, unspecified (ICD-10) Methamphetamine use disorder, mild, in sustained remission ?F15.11 - Other stimulant abuse, in remission (ICD-10) Asthma ?J45.909 - Unspecified asthma, uncomplicated (ICD-10) Surgical History [place] teeth extracted ?K08.409 - Partial loss of teeth, unspecified cause, unspecified class (ICD- 10) S/P section ?Z98.891 - History of uterine scar from previous surgery (ICD-10) Family History Family/Other Breast cancer Grandmother Pancreatic cancer Father Alcohol dependence Social History Narrative: Completed high school. Works in [employer] services at [employer]. 4 kids. Engaged to be 02/2024. What is your current living situation?: I presently have a place to live In the past 12 months, utilities in danger of being shut off: no In the past 12 mos, have been you worried that your food would run out before you had money to buy more?: sometimes true In the past 12 mos, the food you bought just didn't last and you didn't have money to buy more?: often true Smoking Status: Never smoker Do you use any of these nicotine containing products: None Second hand tobacco smoke exposure: No How often do you have a drink containing alcohol: never How often do you have six or more drinks on one occasion: Never AUDIT-C Alcohol total score: 0 Non-prescribed substance use: denies use How often does anyone, including family, friends and others, physically hurt you : never How often does anyone, including family, friends and others, insult or talk down to you: never How often does anyone, including family, friends and others, threaten you with harm: never How often does anyone, including family, friends and others, scream or curse at you: never service: No Health Related Social Needs: food insecurity (Z59.41) Exam Narrative: Exam Narrative: Vital signs reviewed In general, alert, nontoxic woman. She appears a little fatigued. Head: Normocephalic, atraumatic. Eyes: Sclera clear. Pupils equal and reactive. ENT: Mucous membranes moist. Throat is normal. Neck: Supple without adenopathy. Heart: Regular rate and rhythm without murmur. Lungs: Clear. No increased work of breathing, crackles or wheezes. Abdomen: Soft, nontender to palpation. Extremities: Well perfused, pulses intact. No significant edema. Neurologic: Alert, conversant. Speech fluent, face symmetric. Moves all extremities equally. Skin: Warm, dry well perfused. Affect: Normal. Const: Vital Signs, click to edit/add: Vital Signs - 24 hr 01/11/24 18:33 Temperature 97.8 F Pulse Rate [Pulse Oximeter] 84 Respiratory Rate 18 Blood Pressure [Ri ght Upper Arm] 123/80 Pulse Oximetry 99 Oxygen Delivery Me thod Room Air Documenting provider has reviewed patient's vital signs: yes Course Course ED Course: Overall, symptoms sound like they are likely viral. She had a negative viral swab at her clinic last week, does not know if her tetanus is up to date and I will go ahead and send testing for per test this. Will do a chest x-ray as well and check a UA. Vital signs are reassuring and exam is unremarkable. Chest x-ray by my review is negative, final radiology read is likewise negative. UA is negative. Results discussed with her, suspect viral symptoms. Protest is pending. Return any time for worsening, anticipate gradual improvement over the next few days to week. See primary care if not improving. Vital Signs Vital signs: Initial Vital Signs Temperature 97.8 F 01/11/24 18:33 Temperature Source Temporal Artery Scan 01/11/24 18:33 Pulse Rate 84 01/11/24 18:33 Respiratory Rate 18 01/11/24 18:33 Blood Pressure 123/80 01/11/24 18:33 Blood Pressure Mean 94 01/11/24 18:33 Pulse Oximetry 99 01/11/24 18:33 Oxygen Delivery Method Room Air 01/11/24 18:33 Vital Signs Temperature 97.8 F 01/11/24 18:33 Pulse Rate 84 01/11/24 18:33 Respiratory Rate 18 01/11/24 18:33 Blood Pressure 123/80 01/11/24 18:33 Pulse Oximetry 99 01/11/24 18:33 Oxygen Delivery Method Room Air 01/11/24 18:33 Temperature 97.8 F 01/11/24 18:33 Pulse Rate 84 01/11/24 18:33 Respiratory Rate 18 01/11/24 18:33 Blood Pressure 123/80 01/11/24 18:33 Pulse Oximetry 99 01/11/24 18:33 Oxygen Delivery Method Room Air 01/11/24 18:33 Medical Decision Making Lab Data Labs: Lab Results 01/11/24 Range/Units Unknown Urine Color Light yellow (Yellow) Urine Appearance Clear (Clear) Urine pH 8.5 (5.0-8.5) Ur Specific [place] 1.020 (1.000-1.030) Urine Protein Negative (Negative) Urine Glucose (UA) Negative (Negative) Urine Ketones Negative (Negative) Urine Blood Negative (Negative) Urine Nitrite Negative (Negative) Urine Bilirubin Negative (Negative) Urine Urobilinogen 1.0 (0.2-1.0) Ur Leukocyte Esterase Negative (Negative) Urine RBC 0-2 (0-2) Urine WBC 0-2 (0-5) Ur Squamous Epith Cells Few (None-Few) Urine Bacteria None (None) Imaging Data Chest x-ray: Attestation: I have reviewed the pertinent imaging results. Radiologist's impression: [place] [address] Diagnostic Imaging Report Patient: Maru eVga MR#: [id number] : 1980 Acct:[id number] Loc: ED Service Date: 01/11/[address]: Ordering Physician: Cora Carvalho M.D. Date of Service: 01/11/24 Procedure(s): XR chest 2V Accession Number(s): [id number] cc: Cora Carvalho M.D.; Yelitza Martino~ For Patients: As a result of the Cures Act, medical imaging exams and procedure reports are released immediately into your electronic medical record. You may view this report before your referring provider. If you have questions, please contact your health care provider. Indication: Cough Technique: PA and lateral views of the chest. Comparison: 08/19/2017. Findings: Normal cardiomediastinal silhouette. No focal consolidation, pleural effusions, or visualized pneumothorax. Impression: No acute cardiopulmonary disease. Dictated by Rafael Tucker MD @ 01/11/2024 7:57:24 PM Discharge Plan Discharge Clinical Impression: Upper respiratory infection Patient Disposition: Home, Self-Care Condition: Stable Instructions: Upper Respiratory Infection (DC) Additional Instructions: Your x-ray is normal, there is no evidence of pneumonia. Your oxygen levels are reassuring as well, and your urine does not show any evidence of infection. I would continue with your current care, anticipate gradual improvement over the next few days. See your primary doctor if not improving. For high fevers, significant shortness of breath, or other worsening, return to the ER at any time. Prescriptions: New ipratropium-albuterol 0.5 mg-3 mg(2.5 mg base)/3 mL solution for nebulization 3 ml inhalation Q6-8H PRNQty: 90 0RF No Action ipratropium-albuterol 0.5 mg-3 mg(2.5 mg base)/3 mL solution for nebulization INHALATION Patient Comments: INHALE 3 ML VIA A NEBULIZER 4 TIMES DAILY FOR 3 DOSES. albuterol sulfate 2.5 mg /3 mL (0.083 %) solution for nebulization Patient Comments: USE 1 VIAL VIA NEBULIZER EVERY 4 HOURS WHILE AWAKE montelukast 10 mg tablet Patient Comments: TAKE 1 TABLET BY MOUTH AT BEDTIME loratadine 10 mg tablet budesonide-formoterol [Symbicort] 160-4.5 mcg/actuation HFA aerosol inhaler INHALATION Patient Comments: INHALE 2 PUFFS BY MOUTH TWICE DAILY fluticasone furoate 27.5 mcg/actuation spray,suspension 2 spray intranasal DAILY Qty: 9.1 0RF Rx Instructions: into each nostril Follow Up/Referrals: Yelitza Martino [Primary Care Provider] - Stand Alone Forms: [facility]ones Info Instructions
[2024-01-11 19:04] LABS: Appearance Urine Clear (Clear); Bilirubin Urine Negative (Negative); Blood Urine Negative (Negative); Color Urine Light yellow (Yellow); Glucose Urine Negative (Negative); Ketones Urine Negative (Negative); Leukocyte Esterase Urine Negative (Negative); Nitrite Urine Negative (Negative); Protein Urine Negative (Negative); pH Urine 8.5 (5.0-8.5)
--- OUTSIDE RECORDS SUMMARY | 2024-01-11 19:05 | XMS_ITS | Clinical Summary ---
Author Organization [facility] Address [place], [place] [address] Care Team Providers Care Utility Specialist Name Role Phone Yelitza Martino Primary Care Provider [phone] Allergies Active Allergy Reactions Criticality Noted Date [...] (ASTELIN) nasal sprayIndications:C hronic rhinitis Inhale 1 [facility] into affected nostril(s) two times daily. 30 mL 5 12/08/2021 Active albuterol-ipratrop ium (DUONEB) (2.5-0.5 mg) in 3 mL NEBULIZATION solutionIndication s:Moderate persistent asthma without complication Inhale 3 mL via a nebulizer 4 times daily. 1080 mL 06/18/2022 Active albuterol HFA (PRO-AIR; VENTOLIN; PROVENTIL) [...] once daily. 48 g 3 07/08/2023 Active lamoTRIgine 25 mg tabletIndications: Borderline personality disorder (HC),Depression, unspecified depression type Take 1 tablet (25 mg) by mouth once daily for 14 days, THEN take 2 tablets (50 mg) daily for 14 days, THEN take the next prescription to increase 42 Tablet 12/08/2023 Active lamoTRIgine 200 mg tabletIndications: Borderline personality disorder (HC),Depression, unspecified depression type Take 100 mg (0.5 tabs) at bedtime for 7 days, THEN take 1 tab (200 mg) at bedtime 90 Tablet 12/08/2023 Active predniSONE (DELTASONE) 10 mg tabletIndications: Moderate persistent asthma with acute exacerbation Take 4 Tablets (40 mg) by mouth once daily with a meal for 3 days, THEN 3 Tablets (30 mg) once daily with a meal for 3 days, THEN 2 Tablets (20 mg) once daily with a meal for 3 days, THEN 1 Tablet (10 mg) once daily with a meal for 3 days. 30 Tablet 01/07/2024 01/19/2024 Active Active Problems Problem Noted Date Diagnosed [...] Encounters Date Type Department Care Team Description 01/07/2024 3:40 PM DETECTIVE PRECINCT Office Visit [facility] [address] [place] [address] Yelitza Martino, Throat Problem (Has been sick since last wednesday, chills, fever, sore throat, sinus congestion, ear pain, teeth hurt) 01/07/2024 Travel 12/08/2023 10:59 AM CDT - 12/08/2023 11:59 PM CDT Hospital Encounter [facility] [address] [place] [address] Mass of lower outer quadrant of left breast 12/08/2023 9:15 AM CDT Office Visit [facility] [address] [place] [address] Ana Rodas, HERIBERTO Medication Management (Things are going okay) 12/08/2023 Travel 11/17/2023 Telephone [facility] [address] [place] [address] Jessenia Moses Breast Problem (Left breast lump and pain) 11/17/2023 Travel from Last 3 Months Immunizations Name Administration [...] PHQ-2 Answer Date Recorded PHQ-2 TOTAL SCORE 3 12/08/2023 Social Connections Answer Date Recorded Frequency of [...] Sign Reading Time Taken Comments Blood Pressure 98/70 01/07/2024 3:50 PM DETECTIVE PRECINCT Pulse 105 01/07/2024 3:50 PM DETECTIVE PRECINCT Temperature 36.7 C (98 F) 01/07/2024 3:50 PM DETECTIVE PRECINCT Respiratory Rate 22 01/07/2024 3:50 PM DETECTIVE PRECINCT Oxygen Saturation 99% 01/07/2024 3:50 PM DETECTIVE PRECINCT Inhaled Oxygen Concentration - - Weight 86 kg (189 lb 9.6 oz) 01/07/2024 3:50 PM DETECTIVE PRECINCT Height 175.3 cm (5' 9) 09/23/2022 10:36 AM CDT Body Mass Index 28 09/23/2022 10:36 AM CDT Plan of Treatment Health Maintenance Due Date Last Done Comments Pneumococcal series for age 6-64 (1 of 2 - PCV) 02/28/1988 BMI (ht and wt on same day) for age 18+ 09/24/2023 09/23/2022, 06/18/2022, 05/29/2022, Additional history exists COVID-19 vaccine series ( season) 2023 Influenza for age 9-49 10/17/2023 , 01/24/2020, 12/08/2018, Additional history exists Depression screening for age 12+ 12/07/2024 12/08/2023, 02/24/2023, 10/21/2022, Additional history exists Tetanus booster 04/11/2025 04/11/2015, 08/25/2010 Pap test for age 21-65 09/18/2026 2, 09/18/2021, 11/30/2017 (Completed outside of [facility]) Tdap Completed 04/11/2015, 08/25/2010 HIV for age 15-65 Completed 09/18/2021, , 02/11/2017 Hepatitis C screening for ag e 18-79 Completed 09/23/2022, 09/18/2021 Procedures Procedure Name Priority Date/Time Associated Diagnosis Comments COVID/FLU/RSV PANEL Routine 01/07/2024 4 :00 PM DETECTIVE PRECINCT Suspected COVID-19 virus infection US BREAST UNILATERAL LEFT LIMITED EUGENIA 12/08/2023 11:56 AM CDT Mass of lower outer quadrant of left breast XR MAMMO RIGOBERTO BILAT DIAG EUGENIA 12/08/2023 11:20 AM CDT Mass of lower outer quadrant of left breast LC HCV ANTIBODY RFX TO QUANT PCR Routine 09/23/2022 12:14 PM CDT Myalgia Arthralgia, unspecified joint ANTI HIV 1/2 Routine 09/18/2021 10:16 AM CDT Chronic fatigue HPV HIGH RISK Routine 09/18/2021 9:55 AM CDT Screening for cervical cancer from Last 3 Months or Most Recently Relevant to Health Maintenance Results * COVID/FLU/RSV PANEL (01/07/2024 4:00 PM DETECTIVE PRECINCT) COVID 19 [facility] MOLEC[facility] Negative Negative 01/08/2024 1:42 AM DETECTIVE PRECINCT [facility] INFLUENZA A PCR Negative 4 1:42 AM DETECTIVE PRECINCT [facility] INFLUENZA B PCR Negative 4 1:42 AM DETECTIVE PRECINCT [facility] Respiratory Syncytial Virus Negative 01/08/2024 1:42 AM DETECTIVE PRECINCT [facility] Swab NASOPHARYNGEAL SWAB / Unknown Non-Blood / Unknown 01/07/2024 4:00 PM DETECTIVE PRECINCT 01/07/2024 4:35 PM DETECTIVE PRECINCT Yelitza Martino DO MICROBIOLOGY [facility] [address] [place] [address], [place] * US BREAST UNILATERAL LEFT LIMITED (12/08/2023 11:56 AM CDT) Anatomical Region Laterality Modality BREASTS, Breast Left, Breast Right Left Ultrasound, Other Narrative 12/09/2023 8:35 AM CDT For Patients: As a result of the Cures Act, medical imaging exams and procedure reports are released immediately into your electronic medical record. You may view this report before your referring provider. If you have questions, please contact your health care provider. LEFT BREAST ULTRASOUND, 12/08/2023 PLEASE SEE [id number] FOR DIGITAL BILATERAL MAMMOGRAM SAME DAY. Yelitza Martino DO US * XR MAMMO RIGOBERTO BILAT DIAG (12/08/2023 11:20 AM CDT) Anatomical Region Laterality Modality BREASTS, Breast Left, Breast Right Bilateral Mammography, Other 12/08/2023 12:2 8 PM CDT Impressions 12/09/2023 8:35 AM CDT 1. Multiple asymmetries in the LEFT breast relatively similar on the mammogram. Possible new cluster at the 3 o'clock position would correspond to what the patient is currently palpating. No definitive evidence of malignancy. 2. Recommend annual screening mammography. BI-RADS Category 2: Benign Dictated by: Zhanna Henson MD @12/08/2023 12:28:45 PM/vibha PATIENTS: You will also receive a letter with your examination results in an easy to read format. If you have questions about your results, please contact your referring provider. Narrative 12/09/2023 8:35 AM CDT For Patients: As a result of the Cures Act, medical imaging exams and procedure reports are released immediately into your electronic medical record. You may view this report before your referring provider. If you have questions, please contact your health care provider. DIGITAL DIAGNOSTIC BILATERAL MAMMOGRAM USING TOMOSYNTHESIS AND COMPUTER-AIDED DETECTION, 12/08/2023 LEFT BREAST ULTRASOUND, 12/08/2023 INDICATION: Palpable lump lateral LEFT breast. TECHNIQUE: Diagnostic BILATERAL mammogram using tomosynthesis and CAD, and LEFT breast ultrasound. COMPARISON: BILATERAL mammogram and BILATERAL breast ultrasound 09/24/2022. FINDINGS: The LEFT breast is heterogeneously dense which may obscure small masses. There are numerous benign-appearing mass which were cysts on prior ultrasound and asymmetrical densities similar to the previous study. Possible new nodule superior in the LEFT breast on the MLO view. Targeted ultrasound of the palpable lump at the 3 o'clock position LEFT breast is consistent with a cluster of multiple cysts measuring up to 7 millimeters in diameter. There is also a cystic cluster at the 4 o'clock position which is similar to that noted on the prior study. Yelitza Martino DO MAMMO * LC HCV ANTIBODY RFX TO QUANT PCR (09/23/2022 12:14 PM CDT) Pathologist [facility] HCV Ab Non Reactive Non Reactive 09/26/2022 7:17 AM CDT [facility] Blood BLOOD SPECIMEN / Unknown Venipuncture / Unknown 09/23/2022 12:14 PM CDT 09/23/2022 12:20 PM CDT Narrative [facility] - 09/26/2022 7:17 AM CDT Performed at: [address] [place] [id number] Business Process Analyst: Chicho Forbes MD, Phone: [phone] Yelitza Martino DO LABORATORY [facility] ([facility]) [address] [place] [id number], * ANTI HIV 1/2 (09/18/2021 10:16 AM CDT) Pathologist [facility] HIV-1/HIV-2 ANTIBODY Non-Reacti ve Non-Reacti ve 09/19/2021 8:36 PM CDT [facility] Comment:HIV-1 p24 and HIV-1/ HIV-2 Ab not detected. Blood BLOOD SPECIMEN / Unknown Venipuncture / Unknown 09/18/2021 10:16 AM CDT 09/18/2021 10:21 AM CDT Ashley Carbajal MD SEND OU TS [facility] [address] [place] [address], * HPV HIGH RISK (09/18/2021 9:55 AM CDT) TYPE 16 Negative Negative 09/23/2021 11:38 AM CDT [facility] TYPE 18 Negative Negative 09/23/2021 11:38 AM CDT [facility] OTHER HIGH RISK TYPES Negative Negative 09/23/2021 11:38 AM CDT [facility] Other (Cervical) Non-Blood / Unknown 09/18/2021 9:55 AM CDT 09/19/2021 12:12 PM CDT Narrative [facility] - 09/23/2021 11:38 AM CDT HPV types 16, 18, 31, 33, 35, 39, 45, 51, 52, 56, 58, 59, 66 and 68 DNA were undetectable or below the pre-set threshold. Methodology: Efe Soledad 4800 HPV Test Ashley Carbajal MD [facility] [address] [place] [address], from Last 3 Months or Most Recently Relevant to Health Maintenance Additional Health Concerns Infection Onset Date Last Indicated Rule-Out COVID-19 01/07/2024 01/07/2024 Advance Directives * Full Code (Latest Code Status on File) Date Activated Date Inactivated Comments 05/01/2015 3:27 PM 05/01/2015 10:16 PM * Full Code Date Activated Date Inactivated Comments 06/17/2007 7:53 AM 06/18/2007 7:34 AM * Full Code Date Activated Date Inactivated Comments 06/16/2007 7:25 PM 06/17/2007 7:53 AM Care Teams Utility Specialist Relationship Specialty Start Date End Date Yelitza Martino DO [address] [place] [id number] PCP - General Internal Medicine 02/24/16
[2024-01-11 19:08] LABS: RBC Urine 0-2 (0-2); Squamous Epithelial Cell Urine Few (None-Few); WBC Urine 0-2 (0-5)
[2024-01-15 20:14] LABS: B. pertussis/parapertus Source Resp Swab; Bordetella parapertussis PCR Not Detected; Bordetella pertussis by PCR Not Detected
== END 2024-01-11 20:13 | disposition home or self-care (01) ==
PROVIDERS: Emergency Provider Emergency Medicine; PCP Internal Medicine
DX: J06.9 Acute upper respiratory infection, unspecified (principal)
CPT/HCPCS: 36415; 71046; 81001; 99284

== ENCOUNTER 2024-02-01 15:49 | Outpatient (CLI) | payer SELFPAY | END 2024-02-01 15:50 | disposition home or self-care (01) | LOC: NFLDREF 15:51 | PROVIDERS: PCP Internal Medicine; Visit Provider Registered Nurse | DX: R30.0 Dysuria (principal) | CPT/HCPCS: 87086 ==

== ENCOUNTER 2024-02-14 14:05 | Outpatient (CLI) | payer OTHER, SELFPAY ==
[2024-02-14 19:20] LABS: Bacterial Vaginosis* Negative (Negative); Candida glab/krus NOT DETECTED (No Detected); Candida species NOT DETECTED (No Detected); Trichomonas vaginalis NOT DETECTED (No Detected)
== END 2024-02-14 14:06 | disposition home or self-care (01) ==
LOC: NFLDREF 14:05
PROVIDERS: PCP Internal Medicine; Visit Provider Midwife
DX: N89.8 Other specified noninflammatory disorders of vagina (principal)
CPT/HCPCS: 81513; 87481; 87661

== ENCOUNTER 2024-11-24 11:05 | Outpatient (CLI) | payer BC, SELFPAY ==
[2024-11-24 15:28] LABS: Bacterial Vaginosis* Negative (Negative); Candida glab/krus NOT DETECTED (No Detected)
[2024-11-24 15:58] LABS: Chlamydia DNA Amplified* NOT DETECTED (No Detected); GC DNA Amplified* NOT DETECTED (No Detected)
== END 2024-11-24 11:06 | disposition home or self-care (01) ==
PROVIDERS: PCP Internal Medicine; Visit Provider Registered Nurse
DX: N89.8 Other specified noninflammatory disorders of vagina (principal)
CPT/HCPCS: 81513; 87481; 87491; 87591; 87661

== ENCOUNTER 2024-12-06 09:38 | Outpatient (CLI) | payer OTHER, SELFPAY ==
--- NOTE | 2024-12-06 09:45 | CRLHL7_ITS ---
For Patients: As a result of the Cures Act, medical imaging exams and procedure reports are released immediately into your electronic medical record. You may view this report before your referring provider. If you have questions, please contact your health care provider. DIGITAL DIAGNOSTIC BILATERAL MAMMOGRAM USING TOMOSYNTHESIS AND COMPUTER-AIDED DETECTION LEFT BREAST ULTRASOUND CLINICAL HISTORY: LEFT breast lump. COMPARISON: 12/08/2023, 09/24/2022. TECHNIQUE: Digital BILATERAL mammogram in four projections with computer-aided detection. Tomosynthesis was used in this interpretation. Real-time ultrasound imaging of LEFT breast with imaging documentation. BREAST COMPOSITION: There are scattered areas of fibroglandular density. FINDINGS: 3D CC/MLO BILATERAL mammogram images submitted. Similar parenchymal densities noted bilaterally. No architectural distortion or suspicious calcifications. No adenopathy. Targeted LEFT breast ultrasound performed in the area of concern at 12 o`clock 2 cm from the nipple. In this location there is a cluster of microcysts, measuring in total 11 mm. No suspicious findings. IMPRESSION: Benign fibrocystic changes. No evidence of malignancy. RECOMMENDATIONS: Routine screening mammography. A lay language report of this examination will be provided to the patient. BI-RADS Category 2: Benign Dictated by Yaw Lopez MD @ 12/06/2024 10:46:39 AM jj/Dictated by: Yaw Lopez MD @ 12/06/2024 10:46:00 AM (Electronically Signed)
--- NOTE | 2024-12-06 10:15 | CRLHL7_ITS ---
For Patients: As a result of the Cures Act, medical imaging exams and procedure reports are released immediately into your electronic medical record. You may view this report before your referring provider. If you have questions, please contact your health care provider. SEE DIGITAL DIAGNOSTIC BILATERAL MAMMOGRAM PERFORMED SAME DAY CRL:vibha dunne/Dictated by: Yaw Lopez MD @ 12/06/2024 10:46:00 AM (Electronically Signed)
== END 2024-12-06 09:39 | disposition home or self-care (01) ==
LOC: MAMMO 09:39
PROVIDERS: PCP Internal Medicine; Visit Provider Registered Nurse
DX: N63.20 Unspecified lump in the left breast, unspecified quadrant (principal)
CPT/HCPCS: 76642; 77066; G0279